=== PATIENT | female | born 1935 | race Caucasian/White ===

== ENCOUNTER 2017-09-30 03:17 | Inpatient (IN) | payer MEDICARE, MEDICAID ==
[~2017-09-30] VITALS: Ht 160 cm; Wt 77.3 kg
[2017-09-30] VITALS (22 sets, daily range): BP systolic 86–125; BP diastolic 39–77; BMI 28.0
--- NOTE | ~2017-09-30 | CN ---
PATIENT NAME:CONRAD ASENCIO MEDICAL RECORD: [id number] : 35 LOCATION:TOMD.2313 ADMIT DATE: 09/30/17 ACCOUNT: [id number] CONSULTING PHYSICIAN: LASHAE AVILA MD REFERRING PHYSICIAN: YENNY MELLO MD DATE OF CONSULTATION: 09/30/2017 CONSULT REQUESTING PHYSICIAN: Yenny Mello MD REASON FOR CONSULTATION: Critical care management. HISTORY OF PRESENT ILLNESS: Ms. Asencio is an 82-year-old -Ivorian female who has abdominal pain, nausea, and vomiting. The patient was also dizzy and lightheaded for the last 3 days. The patient came into the ER. The patient was hypotensive and she was in acute renal failure. REVIEW OF THE SYSTEMS: Mainly in the history of present illness. PAST MEDICAL HISTORY: 1. Hypothyroidism. 2. Hyperlipidemia. 3. History of small bowel obstruction in 1999. 4. Gastroesophageal reflux disease. 5. Constipation. ALLERGY: No known drug allergy. PERSONAL AND SOCIAL HISTORY: The patient is nonsmoker, nondrinker. FAMILY HISTORY: Noncontributory. PHYSICAL EXAMINATION: GENERAL: Now, the patient is lying comfortably in bed. She is not in any acute distress. VITAL SIGNS: The blood pressure is 98-101/52, pulse is 96, respiration is 20, temperature is 98.1, SpO2 is 98% on 2 liters nasal cannula. HEENT: Conjunctivae are pink. Sclerae are not icteric. NECK: Neck is supple. No JVD. CHEST: Chest excursion is minimal on both sides. There is no wheeze and no rales. HEART: Rate and rhythm regular. Normal sound. No murmur. ABDOMEN: Abdomen is distended. There is absent breath sounds. There is tenderness on deep palpation. RECTAL: Deferred. EXTREMITIES: No cyanosis. No clubbing. No pedal edema. SKIN: The skin is warm. Normal turgor. CENTRAL NERVOUS SYSTEM: The patient is awake and alert. There is no obvious cranial nerve abnormality. The gait was not tested. LABORATORY DATA: CBC; WBC 7.2, hemoglobin 13, hematocrit 38.3, and platelet count is 234. Chemistry; sodium 141, potassium 3.3, BUN is 55, creatinine 3.7. IMPRESSION: 1. Acute small bowel obstruction. 2. Hypovolemic shock. CONSULT REPORT [id number] CONRAD ASENCIO 3. Dehydration. 4. Acute kidney injury secondary to dehydration. 5. Hypokalemia. 6. Hypertension. 7. Gastroesophageal reflux disease. RECOMMENDATIONS: 1. Continue IV fluid. 2. NG tube suction. 3. DVT prophylaxis. 4. Pressor if required. Followup labs and chest radiograph. Abdominal workup per Dr. Mello. Dr. Mello, thank you for involving me in the care of Ms. Asencio. TRANSINT:[id number] Voice Confirmation ID: [id number] DOCUMENT ID: [id number] LASHAE AVILA MD at 1218 CC: [id number] DICTATION DATE: 09/30/17 1603 SCOUT EXECUTIVE: 09/30/17 1645 ADM IN [place] [id number] [place] [address]
--- NOTE | ~2017-09-30 | HEMODYNAMI ---
PATIENT:CONRAD ASENCIO MEDICAL RECORD: [id number] : 35 LOCATION:[place] [address] ADMISSION DATE: 09/30/17 Generatedon:10/05/201714:47 Patient name: CONRAD ASENCIO Patient #: [id number] SSN: DO B: 1935 Date of study: 10/05/2017 Page: Of Hemodynamic Procedure Report Patient Data Patient Demographics Procedure consent was obtained First Name: CONRAD Gender: Female Last Name: ELIF : 1935 Patient #: [id number] Age: 82 year(s) Race: Unknown Additional ID: [id number] Contact details Address: [address] [place] [address] State: [place] City: [place] Zip code: [address] Past Medical History Allergies: No known allergies Admission Admission Data Admission Date: 09/30/2017 Admission Time: 6:12 Room #: [facility] Height (in.): 63 BSA: 1.75 (m2) Height (cm.): 160.02 BMI: 27.99 (kg/m2) Weight (lbs.): 158 Weight (kg.): 71.67 Procedure Procedure Types Cath Procedure Peripheral Cath Diagnostic Procedure Cath Peripheral Miscellaneous Central Line Placement Procedure Description Procedure Date Procedure Date: 10/05/2017 Procedure Start Time: 14:43 Procedure Staff Name Function Antoni Welsh MD Performing Physician Abi Myers RT Electrical Inspector Hailey Henry RN Nurse Jonah Matthew RT Scrub Procedure Medications Medication Administration Route Dosage Lidocaine 1% added to field 20 Heparin Flush Bag added to field 1 bags (1000units/500ml NS) Hemodynamics Rest BSA: 1.75 (m2) O2 Consumption: Estimated: 238 (ml/min) O2 Consumption indexed: Estimated:136 (ml/min/m) Pre Cath Intra NCS Post Cath Vital Signs Time etCO2 NIBP (mmHg) Rhythm Pain Sedation (mmHg) Status Level 14:20:51 0 136/69(116) NSR 0 (11) , 10(A) No pain 14:25:09 0 131/69(101) NSR 0 (11) , 10(A) No pain 14:29:29 0 139/66(82) NSR 0 (11) , 10(A) No pain 14:33:47 0 139/65(108) NSR 0 (11) , 10(A) No pain 14:38:05 0 132/67(91) NSR 0 (11) , 10(A) No pain 14:42:23 0 138/71(93) NSR 0 (11) , 10(A) No pain 14:47:22 0 Measuring NSR 0 (11) , 10(A) No pain Medications Time Medication Route Dose Verified Delivered Reason Notes Effec tiveness by by 14:33:37 Lidocaine 1% added 20ml Antoni Corrales used for to vial Blaise Welsh MD procedure field 14:33:51 Heparin Flush added 1 Antoni Corrales used for Bag to bags Blaise Welsh MD procedure (1000units/500ml field NS) Procedure Log Time Note 14:18:34 Patient Weight : 158 lbs 14:18:39 Patient Height : 63 inches 14:19:05 Time tracking: Regular hours (M-F 7:00 - 5:00) 14:19:22 Plan of Care:Hemodynamics will remain stable., Cardiac rhythm will remain stable., Comfort level will be maintained., Respiratory function will remain adequate., Patient/ family verbilizes understanding of procedure., Procedure tolerated without complication., Recovers from procedure without complications.. 14:19:23 Correct patient and procedure confirmed by team. 14:19:27 Signed procedure consent form obtained from patient. 14:19:31 Vital chart was started 14:19:48 Full Disclosure recording started 14:19:49 - 14:19:54 H&P Date Dictated: 10/05/2017 Within 30 days and on chart.. 14:20:05 Use device set IR Diagnostic 14:20:07 Sterile Angiographic Pack opened to sterile field. 14:20:08 Bag Decanter () opened to sterile field. 14:20:17 SHIELD Sorbaview ([id number]) opened to sterile field. 14:20:25 SUTURE ETHILON 2-0 BLK MONO FS opened to sterile field. 14:20:32 - 14:20:43 Patient allergic to No known allergies 14:20:57 Left neck area was prepped with chlora-prep and draped in sterile fashion 14:21:01 - 14:29:47 Physician arrived 14:30:35 Final Timeout: patient, procedure, and site verified with staff and physician. All members of the team are in agreement. 14:30:53 Procedure started. 14:33:16 GLIDE WIRE Angled Super Stiff 180cm ([id number]) opened to sterile field. 14:33:37 Lidocaine 1% 20ml vial added to field was administered by Antoni Welsh MD; used for procedure; 14:33:51 Heparin Flush Bag (1000units/500ml NS) 1 bags added to field was administered by Antoni Welsh MD; used for procedure; 14:40:32 a 7fr 3lumen 16cm central venous catheter was placedin the left int. jugular 14:45:03 Procedure ended.(Physican Out) 14:45:17 Procedure and supply charges have been captured, reviewed, submitted an d are correct. 14:47:09 Report given to ICU. 14:47:54 Vital chart was stopped Device Usage Item Name Manufacture Quantity Catalog Hospital Part Current Minimal Lot# / Number Charge Number Stock Stock Serial# Code Sterile Cardinal [address] [id number] 5 Angiographic Health Pack Bag Decanter Microtek [id number] 5 () [employer] SHIELD Centurion 1 [id number] [id number] 5 Sorbaview ([id number]) SUTURE Ethicon 1 [id number] 183896 5 ETHILON 2-0 BLK MONO FS GLIDE WIRE Terumo 1 [id number] [id number] 5 Angled Super Stiff 180cm ([id number]) Signature Audit [place] Stage Time Signature Unsigned Intra-Procedure 10/05/2017 Abi Myers 2:47:52 PM RT(R) [facility] [address] [place] [address]
--- NOTE | ~2017-09-30 | OP ---
PATIENT NAME: CONRAD ASENCIO MEDICAL RECORD: [id number] :35 LOCATION:[facility] D.2313 ADMISSION DATE:09/30/17 SURGEON: FIDELIA MILLER MD DATE OF OPERATION: 10/03/2017 SURGEON: Fidelia Miller MD PREOPERATIVE DIAGNOSES: Small-bowel obstruction, acute renal failure. POSTOPERATIVE DIAGNOSES: Small-bowel obstruction, acute renal failure. PROCEDURE PERFORMED: 1. Exploratory laparotomy and small bowel resection. 2. Diagnostic laparoscopy with laparoscopic lysis of adhesions. 3. Left subclavian CVL placement. ANESTHESIA: General. COMPLICATIONS: None. SPECIMENS: Small bowel resection. ESTIMATED BLOOD LOSS: 200 cc. Case was grossly contaminated. OPERATIVE COURSE: After consent was obtained, the patient was taken to the operating room and placed in supine position on the operating table. Next, general anesthesia was given via endotracheal intubation after a timeout was taken to confirm the correct patient and procedure. The left chest was prepped and draped in typical sterile fashion. An Ioban dressing was placed when the patient was draped. Local anesthetic was injected. The left subclavian vein was cannulated on the first pass. A guidewire was placed. The needle was removed. A stab incision was made with an 11-blade scalpel. The dilator was passed over the wire in a standard Seldinger fashion. The catheter was then passed over the wire in a standard Seldinger fashion. Biopatch was placed. It was secured to the skin with 2-0 nylon suture and a sterile Tegaderm dressing. All 3 ports were aspirated and flushed. Next, the abdomen was prepped and draped in typical sterile fashion. A local anesthetic was given in the left upper quadrant at Mcdonenll's point. A stab incision was made at 11-blade scalpel using a 5-mm bladeless optical trocar, the abdomen was entered under direct laparoscopic vision. Adequate pneumoperitoneum was achieved. There were significant adhesions of the omentum and small bowel to the anterior midline previous laparotomy incision, 2 additional 5-mm trocars were placed in the left lateral and left lower quadrant positions in direct laparoscopic vision. Laparoscopic lysis of adhesions was performed with the Harmonic scalpel and sharp scissor dissection, freeing up all omentum and small bowel from the anterior midline. There were significant adhesions in the right lower quadrant. With the distal small-bowel which was also freed up of laparoscopic lysis of adhesions, a small bowel was run from the terminal ileum proximal. There was an area of dense adhesions in the mid small-bowel between the mid small bowel and transverse colon and greater omentum that were unable to be lysed laparoscopically. At this time, a small midline incision was made with a 15-blade scalpel through the previous midline incision. Dissection continued at the level of the fascia using electrocautery. The fascia was incised with OPERATIVE REPORT [id number] CONRAD ASECNIO electrocautery and there was immediate gush of air. Her main portion of the fascia was opened under direct vision. An Rufino wound retractor was placed. The small bowel was then extracorporealized at the area. There was an obstruction noted at a previous small bowel anastomosis. The small bowel anastomosis was extracorporealized. At this time, the proximal small bowel was markedly dilated. It was patchy and dusky, sterile towels were placed. Enterotomies were made using electrocautery. A common enterotomy was performed using the linear BOOKER stapler with a 75-mm green load. The common enterotomy was then closed with a second firing of the 75-mm green load stapler. The mesentery was taken with the Harmonic scalpel. The small bowel section was sent for permanent pathology. Next, the staple lines were imbricated using 3-0 Vicryl suture. Prior to closure of the anastomosis, a small bowel decompression was performed with the suction with several liters of fluid were suctioned from the proximal small bowel loops, then the suction was removed. The common enterotomy was closed with a second fire of the BOOKER stapler. Staple line was imbricated using 3-0 Vicryl suture. Mesentery was closed using 3-0 Vicryl suture. All small bowel was then extracorporealized. The small bowel was run from the terminal ileum. The cecum was identified. The small bowel was run from the terminal ileum, proximal. There was free passage of fluid through the anastomosis with no evidence of leak given it was run proximal to the small bowel anastomosis all the way to the ligament of Treitz, the abdomen was then irrigated with 5 liters of warm normal saline. A ADIEL drain was placed into the pelvis through the prior left lateral trocar site. The fascia was then closed with a 0 looped PDS suture. The skin was reapproximated with sg. At the end of the case, all needle and instrument counts were correct. No complications occurred. The patient was extubated and transferred to the PACU in stable condition. TRANSINT:[id number] Voice Confirmation ID: [id number] DOCUMENT ID: [id number] FIDELIA MILLER MD at 1702 CC: [id number] DICTATION DATE: 10/03/17 1522 SENIOR ADMINISTRATIVE SUPPORT: 10/03/17 1601 ADM IN [place] [address] [place] [address]
[2017-09-30 04:45] LABS: BASOPHILS 0.3 % (0-2); EOSINOPHILS 0.1 % (0-7); HEMATOCRIT 38.3 % (36.0-48.0); IMMATURE GRANULOCYTES 1.5 % (0-5); LYMPHOCYTES 11.7 % (15-50); MCH 28.6 pg (26.0-34.0); MCHC 33.9 g/dL (31.0-37.0); MCV 84.4 fL (80.0-100.0); MEAN PLATELET VOLUME 10.2 fL (7.4-10.4); MONOCYTES 16.1 % (2-11); NEUTROPHILS 70.3 % (40-80); PLATELET COUNT 234 10x3/uL (130-400); RBC 4.54 10x6/uL (4.00-5.40); RDW 14.4 % (11.5-14.5); WBC 7.2 10x3/uL (4.8-10.8)
[2017-09-30 05:08] LABS: ALBUMIN 2.8 g/dL (3.4-5.0); BILIRUBIN - TOTAL 0.78 mg/dL (0.2-1.3); CALCIUM 9.3 mg/dL (8.5-10.1); CARBON DIOXIDE 24.3 mmol/L (21.0-32.0); CREATININE - SERUM 3.7 mg/dL (0.6-1.3); POTASSIUM - SERUM 3.3 mmol/L (3.5-5.1); PROTEIN - SERUM 6.9 g/dL (6.4-8.2)
[2017-09-30 09:51] LABS: APTT 29.3 SECONDS (22.8-39.4); INR 1.47 (0.85-1.17); PROTIME 17.3 SECONDS (11.6-15.0)
[2017-09-30 20:16] LABS: APPEARANCE HAZY (CLEAR); BILIRUBIN NEGATIVE (NEGATIVE); COLOR YELLOW (YELLOW); GLUCOSE NEGATIVE (NEGATIVE); KETONE NEGATIVE (NEGATIVE); NITRITE NEGATIVE (NEGATIVE); PROTEIN TRACE mg/dL (NEGATIVE); UROBILINOGEN NORMAL (NORMAL)
[2017-09-30 20:37] LABS: POTASSIUM - URINE 69.2 MMOL/L (12.0-62.0); PRO/CRE RATIO URINE 1.1 mg/g; PROTEIN - URINE 169.3 mg/dL (0.0-11.9)
[2017-10-01] VITALS (20 sets, daily range): BP systolic 94–129; BP diastolic 39–89; Ht 160 cm; Wt 77.3 kg
[2017-10-01 04:06] LABS: BASOPHILS 0.9 % (0-2); EOSINOPHILS 0.5 % (0-7); HEMATOCRIT 34.2 % (36.0-48.0); HEMOGLOBIN 11.8 g/dL (12-16); IMMATURE GRANULOCYTES 2.5 % (0-5); LYMPHOCYTES 13.6 % (15-50); MCH 28.9 pg (26.0-34.0); MCHC 34.5 g/dL (31.0-37.0); MCV 83.6 fL (80.0-100.0); MEAN PLATELET VOLUME 10.6 fL (7.4-10.4); MONOCYTES 7.6 % (2-11); NEUTROPHILS 74.9 % (40-80); PLATELET COUNT 240 10x3/uL (130-400); RBC 4.09 10x6/uL (4.00-5.40); RDW 14.6 % (11.5-14.5); WBC 6.5 10x3/uL (4.8-10.8)
[2017-10-01 04:27] LABS: ANION GAP 19.4 mmol/L (8-16); BILIRUBIN - TOTAL 0.6 mg/dL (0.2-1.3); CALCIUM 7.9 mg/dL (8.5-10.1); CARBON DIOXIDE 19.1 mmol/L (21.0-32.0); POTASSIUM - SERUM 3.5 mmol/L (3.5-5.1); PROTEIN - SERUM 6.2 g/dL (6.4-8.2)
[2017-10-02] VITALS (22 sets, daily range): BP systolic 109–166; BP diastolic 60–91
[2017-10-02 03:56] LABS: BASOPHILS 0.5 % (0-2); EOSINOPHILS 0.3 % (0-7); HEMATOCRIT 34.6 % (36.0-48.0); HEMOGLOBIN 11.7 g/dL (12-16); IMMATURE GRANULOCYTES 7.2 % (0-5); LYMPHOCYTES 10.9 % (15-50); MCH 28.3 pg (26.0-34.0); MCHC 33.8 g/dL (31.0-37.0); MCV 83.8 fL (80.0-100.0); MONOCYTES 6.1 % (2-11); PLATELET COUNT 208 10x3/uL (130-400); RBC 4.13 10x6/uL (4.00-5.40); RDW 14.9 % (11.5-14.5)
[2017-10-02 03:57] LABS: WBC 12.9 10x3/uL (4.8-10.8)
[2017-10-02 04:36] LABS: ANION GAP 22.1 mmol/L (8-16); BILIRUBIN - TOTAL 0.51 mg/dL (0.2-1.3); CALCIUM 8.8 mg/dL (8.5-10.1); CARBON DIOXIDE 18.4 mmol/L (21.0-32.0); PROTEIN - SERUM 6.6 g/dL (6.4-8.2); THYROID STIMULATING HORMONE 2.22 uIU/mL (0.36-3.74)
[2017-10-02 04:49] LABS: CREATININE - SERUM 2.7 mg/dL (0.6-1.3); POTASSIUM - SERUM 3.5 mmol/L (3.5-5.1)
[2017-10-03] VITALS (24 sets, daily range): BP systolic 80–173; BP diastolic 45–87
[2017-10-03 03:38] LABS: BASOPHILS 0.6 % (0-2); EOSINOPHILS 1.1 % (0-7); HEMATOCRIT 35.6 % (36.0-48.0); HEMOGLOBIN 12.6 g/dL (12-16); IMMATURE GRANULOCYTES 11.8 % (0-5); LYMPHOCYTES 13.1 % (15-50); MCH 28.8 pg (26.0-34.0); MCHC 35.4 g/dL (31.0-37.0); MCV 81.5 fL (80.0-100.0); MEAN PLATELET VOLUME 9.9 fL (7.4-10.4); NEUTROPHILS 66.4 % (40-80); PLATELET COUNT 293 10x3/uL (130-400); RBC 4.37 10x6/uL (4.00-5.40); RDW 14.6 % (11.5-14.5); WBC 14.6 10x3/uL (4.8-10.8)
[2017-10-03 03:47] LABS: ANION GAP 15.5 mmol/L (8-16); BILIRUBIN - TOTAL 0.47 mg/dL (0.2-1.3); CALCIUM 9.3 mg/dL (8.5-10.1); CARBON DIOXIDE 23.9 mmol/L (21.0-32.0); CREATININE - SERUM 1.7 mg/dL (0.6-1.3); POTASSIUM - SERUM 3.4 mmol/L (3.5-5.1)
[2017-10-04] VITALS (24 sets, daily range): BP systolic 81–106; BP diastolic 32–62
[2017-10-04 04:37] LABS: BASOPHILS 0.3 % (0-2); EOSINOPHILS 0.1 % (0-7); HEMATOCRIT 33.9 % (36.0-48.0); HEMOGLOBIN 11.7 g/dL (12-16); IMMATURE GRANULOCYTES 10.5 % (0-5); LYMPHOCYTES 8.8 % (15-50); MCH 28.3 pg (26.0-34.0); MCHC 34.5 g/dL (31.0-37.0); MCV 82.1 fL (80.0-100.0); MEAN PLATELET VOLUME 9.9 fL (7.4-10.4); MONOCYTES 4.7 % (2-11); NEUTROPHILS 75.6 % (40-80); RBC 4.13 10x6/uL (4.00-5.40); RDW 14.8 % (11.5-14.5); WBC 15.1 10x3/uL (4.8-10.8)
[2017-10-04 04:38] LABS: PLATELET COUNT 223 10x3/uL (130-400)
[2017-10-04 05:02] LABS: BILIRUBIN - TOTAL 1.07 mg/dL (0.2-1.3); CALCIUM 7.7 mg/dL (8.5-10.1); CARBON DIOXIDE 26.9 mmol/L (21.0-32.0); CREATININE - SERUM 1.8 mg/dL (0.6-1.3)
[2017-10-04 05:05] LABS: ALBUMIN 1.3 g/dL (3.4-5.0); ANION GAP 13.6 mmol/L (8-16); POTASSIUM - SERUM 4.5 mmol/L (3.5-5.1); PROTEIN - SERUM 4.7 g/dL (6.4-8.2)
[2017-10-05] VITALS (18 sets, daily range): BP systolic 79–144; BP diastolic 45–89
[2017-10-05 03:46] LABS: BASOPHILS 0.2 % (0-2); EOSINOPHILS 0.4 % (0-7); HEMATOCRIT 30.5 % (36.0-48.0); HEMOGLOBIN 10.6 g/dL (12-16); IMMATURE GRANULOCYTES 11.7 % (0-5); LYMPHOCYTES 8.2 % (15-50); MCH 28.6 pg (26.0-34.0); MCHC 34.8 g/dL (31.0-37.0); MCV 82.2 fL (80.0-100.0); MEAN PLATELET VOLUME 9.8 fL (7.4-10.4); MONOCYTES 1.6 % (2-11); NEUTROPHILS 77.9 % (40-80); PLATELET COUNT 258 10x3/uL (130-400); RBC 3.71 10x6/uL (4.00-5.40); WBC 17.1 10x3/uL (4.8-10.8)
[2017-10-05 04:10] LABS: ALBUMIN 1.3 g/dL (3.4-5.0); ANION GAP 13.6 mmol/L (8-16); BILIRUBIN - TOTAL 1.73 mg/dL (0.2-1.3); CARBON DIOXIDE 25.6 mmol/L (21.0-32.0); CREATININE - SERUM 1.9 mg/dL (0.6-1.3); POTASSIUM - SERUM 4.2 mmol/L (3.5-5.1); PROTEIN - SERUM 5.1 g/dL (6.4-8.2)
[2017-10-06 00:51] VITALS: BP 165/82
[2017-10-06 04:28] VITALS: BP 157/77
[2017-10-06 05:18] LABS: BASOPHILS 0.1 % (0-2); EOSINOPHILS 0.9 % (0-7); HEMATOCRIT 27.6 % (36.0-48.0); HEMOGLOBIN 9.5 g/dL (12-16); IMMATURE GRANULOCYTES 8.3 % (0-5); LYMPHOCYTES 6.5 % (15-50); MCH 28.1 pg (26.0-34.0); MCHC 34.4 g/dL (31.0-37.0); MCV 81.7 fL (80.0-100.0); MEAN PLATELET VOLUME 9.7 fL (7.4-10.4); MONOCYTES 3.2 % (2-11); PLATELET COUNT 250 10x3/uL (130-400); RBC 3.38 10x6/uL (4.00-5.40); RDW 14.7 % (11.5-14.5); WBC 14.8 10x3/uL (4.8-10.8)
[2017-10-06 05:58] LABS: ALBUMIN 1.1 g/dL (3.4-5.0); ANION GAP 12.6 mmol/L (8-16); BILIRUBIN - TOTAL 1.9 mg/dL (0.2-1.3); CARBON DIOXIDE 24.3 mmol/L (21.0-32.0); CREATININE - SERUM 1.7 mg/dL (0.6-1.3); POTASSIUM - SERUM 3.9 mmol/L (3.5-5.1); PROTEIN - SERUM 5.2 g/dL (6.4-8.2)
[2017-10-06 08:01] VITALS: BP 158/89
[2017-10-06 13:06] VITALS: BP 121/76
[2017-10-06 16:25] VITALS: BP 160/67
[2017-10-06 19:51] VITALS: BP 149/67
[2017-10-07 00:10] VITALS: BP 123/60
[2017-10-07 04:45] VITALS: BP 135/62
[2017-10-07 06:35] LABS: ALBUMIN 1.3 g/dL (3.4-5.0); ANION GAP 16.4 mmol/L (8-16); BILIRUBIN - TOTAL 2.28 mg/dL (0.2-1.3); CALCIUM 8.3 mg/dL (8.5-10.1); CARBON DIOXIDE 22.8 mmol/L (21.0-32.0); CREATININE - SERUM 1.5 mg/dL (0.6-1.3); POTASSIUM - SERUM 4.2 mmol/L (3.5-5.1); PROTEIN - SERUM 5.3 g/dL (6.4-8.2)
[2017-10-07 07:27] LABS: BASOPHILS 0.2 % (0-2); EOSINOPHILS 1.2 % (0-7); HEMATOCRIT 31.1 % (36.0-48.0); HEMOGLOBIN 10.3 g/dL (12-16); IMMATURE GRANULOCYTES 7.4 % (0-5); LYMPHOCYTES 6.6 % (15-50); MCH 27.4 pg (26.0-34.0); MCHC 33.1 g/dL (31.0-37.0); MCV 82.7 fL (80.0-100.0); MEAN PLATELET VOLUME 10.6 fL (7.4-10.4); MONOCYTES 3.3 % (2-11); NEUTROPHILS 81.3 % (40-80); PLATELET COUNT 262 10x3/uL (130-400); RBC 3.76 10x6/uL (4.00-5.40); RDW 15.2 % (11.5-14.5); WBC 15.6 10x3/uL (4.8-10.8)
[2017-10-07 08:10] VITALS: BP 153/59
[2017-10-07 12:47] VITALS: BP 143/80
[2017-10-07 16:48] VITALS: BP 131/77
[2017-10-07 19:21] LABS: APPEARANCE CLEAR (CLEAR); BILIRUBIN NEGATIVE (NEGATIVE); COLOR DK YELLOW (YELLOW); GLUCOSE NEGATIVE (NEGATIVE); KETONE NEGATIVE (NEGATIVE); NITRITE NEGATIVE (NEGATIVE); PROTEIN TRACE mg/dL (NEGATIVE); UROBILINOGEN NORMAL (NORMAL)
[2017-10-07 19:23] LABS: BACTERIA FEW /hpf (NONE SEEN); RED CELLS - URINE 0-5 /hpf (0-5); WHITE CELLS - URINE 0-5 /hpf (0-5)
[2017-10-07 19:24] LABS: AMORPHOUS SEDIMENT <1+ /lpf (NONE SEEN)
[2017-10-07 19:54] VITALS: BP 139/65
[2017-10-08 00:01] VITALS: BP 135/71
[2017-10-08 03:56] VITALS: BP 140/60
[2017-10-08 06:49] LABS: BASOPHILS 0.2 % (0-2); EOSINOPHILS 0.5 % (0-7); HEMATOCRIT 26.4 % (36.0-48.0); HEMOGLOBIN 9.3 g/dL (12-16); IMMATURE GRANULOCYTES 5.1 % (0-5); LYMPHOCYTES 6.2 % (15-50); MCH 28.4 pg (26.0-34.0); MCHC 35.2 g/dL (31.0-37.0); MEAN PLATELET VOLUME 10.4 fL (7.4-10.4); MONOCYTES 4.2 % (2-11); NEUTROPHILS 83.8 % (40-80); RBC 3.27 10x6/uL (4.00-5.40); RDW 14.6 % (11.5-14.5); WBC 15.4 10x3/uL (4.8-10.8)
[2017-10-08 06:52] LABS: MCV 80.7 fL (80.0-100.0); PLATELET COUNT 346 10x3/uL (130-400)
[2017-10-08 07:10] LABS: ALBUMIN 1.2 g/dL (3.4-5.0); BILIRUBIN - TOTAL 1.52 mg/dL (0.2-1.3); CALCIUM 8.6 mg/dL (8.5-10.1); CARBON DIOXIDE 21.6 mmol/L (21.0-32.0); CREATININE - SERUM 1.4 mg/dL (0.6-1.3); MAGNESIUM - SERUM 1.8 mg/dL (1.8-2.4); PHOSPHOROUS 2.7 mg/dL (2.5-4.9); POTASSIUM - SERUM 3.6 mmol/L (3.5-5.1); PROTEIN - SERUM 5.9 g/dL (6.4-8.2)
[2017-10-08 07:47] VITALS: BP 129/70
[2017-10-08 12:13] VITALS: BP 150/67
[2017-10-08 15:58] VITALS: BP 130/66
[2017-10-08 20:06] VITALS: BP 134/82
[2017-10-09] VITALS: BP 128/71
[2017-10-09 04:01] VITALS: BP 103/64
[2017-10-09 05:39] LABS: BASOPHILS 0.2 % (0-2); EOSINOPHILS 0.5 % (0-7); HEMATOCRIT 26.7 % (36.0-48.0); HEMOGLOBIN 9.2 g/dL (12-16); IMMATURE GRANULOCYTES 1.9 % (0-5); LYMPHOCYTES 7.8 % (15-50); MCHC 34.5 g/dL (31.0-37.0); MCV 81.2 fL (80.0-100.0); MEAN PLATELET VOLUME 9.7 fL (7.4-10.4); MONOCYTES 4.8 % (2-11); NEUTROPHILS 84.8 % (40-80); RBC 3.29 10x6/uL (4.00-5.40); RDW 14.8 % (11.5-14.5); WBC 15.5 10x3/uL (4.8-10.8)
[2017-10-09 05:41] LABS: PLATELET COUNT 454 10x3/uL (130-400)
[2017-10-09 05:57] LABS: ALBUMIN 1.4 g/dL (3.4-5.0); ANION GAP 13.4 mmol/L (8-16); BILIRUBIN - TOTAL 1.41 mg/dL (0.2-1.3); CALCIUM 8.4 mg/dL (8.5-10.1); CARBON DIOXIDE 23.1 mmol/L (21.0-32.0); CREATININE - SERUM 1.4 mg/dL (0.6-1.3); POTASSIUM - SERUM 3.5 mmol/L (3.5-5.1); PROTEIN - SERUM 6.5 g/dL (6.4-8.2)
[2017-10-09 09:20] VITALS: BP 141/58
[2017-10-09 14:38] VITALS: BP 144/76
[2017-10-09 17:07] VITALS: BP 132/69
[2017-10-09 20:42] VITALS: BP 133/71
[2017-10-10 00:28] VITALS: BP 148/74
[2017-10-10 04:10] VITALS: BP 124/84
[2017-10-10 04:57] LABS: BASOPHILS 0.2 % (0-2); EOSINOPHILS 0.8 % (0-7); HEMATOCRIT 24.9 % (36.0-48.0); HEMOGLOBIN 8.4 g/dL (12-16); IMMATURE GRANULOCYTES 1.8 % (0-5); LYMPHOCYTES 10.7 % (15-50); MCH 27.5 pg (26.0-34.0); MCHC 33.7 g/dL (31.0-37.0); MCV 81.6 fL (80.0-100.0); MEAN PLATELET VOLUME 9.5 fL (7.4-10.4); MONOCYTES 5.8 % (2-11); NEUTROPHILS 80.7 % (40-80); PLATELET COUNT 541 10x3/uL (130-400); RBC 3.05 10x6/uL (4.00-5.40); RDW 14.8 % (11.5-14.5); WBC 14.1 10x3/uL (4.8-10.8)
[2017-10-10 05:12] LABS: ALBUMIN 1.5 g/dL (3.4-5.0); BILIRUBIN - TOTAL 1.24 mg/dL (0.2-1.3); CALCIUM 8.6 mg/dL (8.5-10.1); CARBON DIOXIDE 23.2 mmol/L (21.0-32.0); CREATININE - SERUM 1.2 mg/dL (0.6-1.3); POTASSIUM - SERUM 3.2 mmol/L (3.5-5.1); PROTEIN - SERUM 6.4 g/dL (6.4-8.2)
[2017-10-10 08:31] VITALS: BP 127/55
[2017-10-10 12:45] VITALS: BP 137/63
[2017-10-10 17:56] VITALS: BP 114/72
[2017-10-10 22:18] VITALS: BP 146/64
[2017-10-11 04:10] VITALS: BP 135/59
[2017-10-11 06:55] LABS: BASOPHILS 0.2 % (0-2); EOSINOPHILS 0.4 % (0-7); HEMATOCRIT 24.5 % (36.0-48.0); HEMOGLOBIN 8.2 g/dL (12-16); IMMATURE GRANULOCYTES 1.2 % (0-5); LYMPHOCYTES 7.3 % (15-50); MCH 27.7 pg (26.0-34.0); MCHC 33.5 g/dL (31.0-37.0); MCV 82.8 fL (80.0-100.0); MEAN PLATELET VOLUME 9.4 fL (7.4-10.4); MONOCYTES 7.6 % (2-11); NEUTROPHILS 83.3 % (40-80); PLATELET COUNT 635 10x3/uL (130-400); RBC 2.96 10x6/uL (4.00-5.40); RDW 15.1 % (11.5-14.5); WBC 12.6 10x3/uL (4.8-10.8)
[2017-10-11 07:09] LABS: ANION GAP 13.9 mmol/L (8-16); CALCIUM 8.7 mg/dL (8.5-10.1); CARBON DIOXIDE 21.7 mmol/L (21.0-32.0); CREATININE - SERUM 1.2 mg/dL (0.6-1.3); POTASSIUM - SERUM 3.6 mmol/L (3.5-5.1)
[2017-10-11 09:20] VITALS: BP 131/65
[2017-10-11 12:03] VITALS: BP 145/71
[2017-10-11 15:39] VITALS: BP 137/81
[2017-10-11 21:48] VITALS: BP 138/84
[2017-10-12 00:56] VITALS: BP 124/78
[2017-10-12 06:38] LABS: BASOPHILS 0.2 % (0-2); EOSINOPHILS 0.3 % (0-7); HEMATOCRIT 24.7 % (36.0-48.0); HEMOGLOBIN 8.3 g/dL (12-16); IMMATURE GRANULOCYTES 1.5 % (0-5); LYMPHOCYTES 9.7 % (15-50); MCH 27.9 pg (26.0-34.0); MCHC 33.6 g/dL (31.0-37.0); MCV 82.9 fL (80.0-100.0); MEAN PLATELET VOLUME 9.2 fL (7.4-10.4); MONOCYTES 10.7 % (2-11); NEUTROPHILS 77.6 % (40-80); PLATELET COUNT 726 10x3/uL (130-400); RBC 2.98 10x6/uL (4.00-5.40); RDW 15.6 % (11.5-14.5)
[2017-10-12 07:04] LABS: ANION GAP 13.7 mmol/L (8-16); CALCIUM 8.2 mg/dL (8.5-10.1); CARBON DIOXIDE 22.8 mmol/L (21.0-32.0); CREATININE - SERUM 1.1 mg/dL (0.6-1.3); POTASSIUM - SERUM 3.5 mmol/L (3.5-5.1)
[2017-10-12 08:06] VITALS: BP 150/73
[2017-10-12 12:36] VITALS: BP 144/70
[2017-10-12] MEDS ORDERED: HYDROCODON-ACE1 EAC7 PO (13:58)
[2017-10-12] MEDS ORDERED: MILK OF MAGNESI30 ML PO (13:59)
[2017-10-12 20:00] VITALS: BP 132/65
[2017-10-13] VITALS: BP 122/59
[2017-10-13 04:00] VITALS: BP 135/66
[2017-10-13 05:54] LABS: BASOPHILS 0.3 % (0-2); EOSINOPHILS 0.8 % (0-7); HEMATOCRIT 24.5 % (36.0-48.0); HEMOGLOBIN 8.3 g/dL (12-16); IMMATURE GRANULOCYTES 2.9 % (0-5); LYMPHOCYTES 11.1 % (15-50); MCHC 33.9 g/dL (31.0-37.0); MCV 82.8 fL (80.0-100.0); MONOCYTES 11.2 % (2-11); NEUTROPHILS 73.7 % (40-80); PLATELET COUNT 651 10x3/uL (130-400); RBC 2.96 10x6/uL (4.00-5.40); RDW 15.6 % (11.5-14.5); WBC 9.8 10x3/uL (4.8-10.8)
[2017-10-13 06:20] LABS: CALCIUM 7.9 mg/dL (8.5-10.1); CARBON DIOXIDE 22.2 mmol/L (21.0-32.0); CREATININE - SERUM 1.1 mg/dL (0.6-1.3); POTASSIUM - SERUM 3.2 mmol/L (3.5-5.1)
[2017-10-13 06:44] LABS: CHOL - HDL RATIO 4.9 ratio (2.3-4.1)
[2017-10-13 07:58] VITALS: BP 122/61
[2017-10-13 15:43] VITALS: BP 132/69
[2017-10-13 21:19] VITALS: BP 138/74
[2017-10-13 23:47] VITALS: BP 124/74
[2017-10-14 04:05] VITALS: BP 148/74
[2017-10-14 06:31] LABS: ANION GAP 10.9 mmol/L (8-16); CALCIUM 8.1 mg/dL (8.5-10.1); CARBON DIOXIDE 21.7 mmol/L (21.0-32.0); POTASSIUM - SERUM 3.6 mmol/L (3.5-5.1)
[2017-10-14 07:15] LABS: BASOPHILS 0.3 % (0-2); EOSINOPHILS 1.1 % (0-7); HEMATOCRIT 24.2 % (36.0-48.0); HEMOGLOBIN 8.1 g/dL (12-16); IMMATURE GRANULOCYTES 3.6 % (0-5); LYMPHOCYTES 10.7 % (15-50); MCH 27.8 pg (26.0-34.0); MCHC 33.5 g/dL (31.0-37.0); MCV 83.2 fL (80.0-100.0); MONOCYTES 11.7 % (2-11); NEUTROPHILS 72.6 % (40-80); PLATELET COUNT 656 10x3/uL (130-400); RBC 2.91 10x6/uL (4.00-5.40); WBC 10.1 10x3/uL (4.8-10.8)
[2017-10-14 07:52] VITALS: BP 126/64
[2017-10-14 12:24] VITALS: BP 118/70
[2017-10-14] MEDS ORDERED: AUGMENTIN 875-11 TAB PO (13:09)
[2017-10-14] MEDS ORDERED: DIFLUCAN100 MG PO (13:09)
[2017-10-14 17:01] VITALS: BP 149/77
[2017-10-14 20:51] VITALS: BP 134/64
[2017-10-15 04:26] VITALS: BP 128/54
[2017-10-15 06:54] LABS: BASOPHILS 0.4 % (0-2); EOSINOPHILS 0.7 % (0-7); HEMOGLOBIN 8.3 g/dL (12-16); IMMATURE GRANULOCYTES 5.8 % (0-5); LYMPHOCYTES 12.2 % (15-50); MCH 27.8 pg (26.0-34.0); MCHC 33.2 g/dL (31.0-37.0); MCV 83.6 fL (80.0-100.0); MEAN PLATELET VOLUME 8.5 fL (7.4-10.4); MONOCYTES 8.6 % (2-11); NEUTROPHILS 72.3 % (40-80); PLATELET COUNT 697 10x3/uL (130-400); RBC 2.99 10x6/uL (4.00-5.40); WBC 11.4 10x3/uL (4.8-10.8)
[2017-10-15 07:17] LABS: ANION GAP 12.3 mmol/L (8-16); CALCIUM 8.3 mg/dL (8.5-10.1); CARBON DIOXIDE 23.9 mmol/L (21.0-32.0); CREATININE - SERUM 1.1 mg/dL (0.6-1.3); POTASSIUM - SERUM 3.2 mmol/L (3.5-5.1)
[2017-10-15 08:42] VITALS: BP 134/67
[2017-10-15 15:54] VITALS: BP 118/72
[2017-10-15 20:38] VITALS: BP 143/75
[2017-10-16 00:06] VITALS: BP 131/75
[2017-10-16 04:47] VITALS: BP 132/69
[2017-10-16 07:56] VITALS: BP 122/58
[2017-10-16 12:28] VITALS: BP 129/67
[2017-10-16] MEDS ORDERED: FLAGYL500 MG PO (12:59)
[2017-10-16] MEDS ORDERED: KEFLEX500 MG PO ×2 (12:59→13:00)
== END 2017-10-16 15:40 | disposition home health service (06) | DRG 329 ==
LOC: D.ER 03:17 → D.MS 06:12 → D.EDHOLD 06:12 → D.ICU 06:12 → D.MS 10-05 20:24
PROVIDERS: Anesthesiology; Family Medicine; Internal Medicine; Internal Medicine Nephrology; Student in an Organized Health Care Education/Training Program; Surgery
PROC: 0DB84ZZ Excision of Small Intestine, Percutaneous Endoscopic Approach (ICD-10-PCS; principal; 2017-10-03 12:00)
PROC: 05H633Z Insertion of Infusion Device into Left Subclavian Vein, Percutaneous Approach (ICD-10-PCS; 2017-10-03 12:00)
PROC: 05S Upper Veins, Reposition (ICD-10-PCS; 2017-10-05)
PROC: 0Y953ZZ Drainage of Right Inguinal Region, Percutaneous Approach (ICD-10-PCS; 2017-10-09)
DX: K56.50 Intestinal adhesions [bands], unspecified as to partial versus complete obstruction (principal); R57.1 Hypovolemic shock; N17.0 Acute kidney failure with tubular necrosis; K65.1 Peritoneal abscess; E87.2 Acidosis; E87.0 Hyperosmolality and hypernatremia; T81.4XXA Infection following a procedure, initial encounter; J98.11 Atelectasis; E87.6 Hypokalemia; I10 Essential (primary) hypertension; K21.9 Gastro-esophageal reflux disease without esophagitis; E03.9 Hypothyroidism, unspecified; D72.829 Elevated white blood cell count, unspecified; D64.9 Anemia, unspecified; R00.0 Tachycardia, unspecified

== ENCOUNTER → 2017-11-05 10:52 | Outpatient (CLI) | payer MEDICARE, MEDICAID ==
[2017-10-01 20:45] VITALS: BMI 27.9
[~2017-11-05 10:52] MED LIST: AUGMENTIN 875-11 TAB PO; DIFLUCAN100 MG PO; FLAGYL500 MG PO; HYDROCODON-ACE1 EAC7 PO; KEFLEX500 MG PO; MILK OF MAGNESI30 ML PO
[2017-11-05 11:34] LABS: BASOPHILS 0.2 % (0-2); EOSINOPHILS 1.3 % (0-7); HEMATOCRIT 32.9 % (36.0-48.0); HEMOGLOBIN 10.8 g/dL (12-16); IMMATURE GRANULOCYTES 0.8 % (0-5); LYMPHOCYTES 31.8 % (15-50); MCH 27.9 pg (26.0-34.0); MCHC 32.8 g/dL (31.0-37.0); MEAN PLATELET VOLUME 9.2 fL (7.4-10.4); MONOCYTES 12.2 % (2-11); NEUTROPHILS 53.7 % (40-80); RBC 3.87 10x6/uL (4.00-5.40); WBC 9.2 10x3/uL (4.8-10.8)
[2017-11-05 11:39] LABS: PLATELET COUNT 318 10x3/uL (130-400)
[2017-11-05 11:44] LABS: ANION GAP 10.7 mmol/L (8-16); CALCIUM 9.1 mg/dL (8.5-10.1); CREATININE - SERUM 0.9 mg/dL (0.6-1.3); POTASSIUM - SERUM 3.7 mmol/L (3.5-5.1)
== END | disposition home or self-care (01) ==
LOC: D.LAB 10:45 → D.CT 11:00
PROVIDERS: Surgery
DX: K56.609 Unspecified intestinal obstruction, unspecified as to partial versus complete obstruction (principal)

== ENCOUNTER 2019-06-20 15:34 | Inpatient (IN) | payer MEDICARE ==
[~2019-06-20] VITALS: Ht 160 cm; Wt 63.5 kg
[2019-06-20] MEDS ORDERED: HYDROCODON-ACE1 EAC7 PO (15:39)
[2019-06-20 17:05] LABS: APTT 29.5 SECONDS (22.8-39.4); INR 1.19 (0.85-1.17)
[2019-06-20 17:18] LABS: BASOPHILS 0.1 % (0-2); EOSINOPHILS 0.3 % (0-7); HEMATOCRIT 30.7 % (36.0-48.0); HEMOGLOBIN 10.1 g/dL (12-16); IMMATURE GRANULOCYTES 0.5 % (0-5); LYMPHOCYTES 7.2 % (15-50); MCH 27.6 pg (26.0-34.0); MCHC 32.9 g/dL (31.0-37.0); MCV 83.9 fL (80.0-100.0); MEAN PLATELET VOLUME 9.3 fL (7.4-10.4); MONOCYTES 7.1 % (2-11); NEUTROPHILS 84.8 % (40-80); PLATELET COUNT 486 10x3/uL (130-400); RBC 3.66 10x6/uL (4.00-5.40); RDW 13.7 % (11.5-14.5); WBC 19.9 10x3/uL (4.8-10.8)
[2019-06-20 17:37] LABS: ALBUMIN 2.7 g/dL (3.4-5.0); ALKALINE PHOSPHATASE 35 U/L (30-120); ALT (SGPT) 24 U/L (10-68); BILIRUBIN - TOTAL 0.31 mg/dL (0.2-1.3); CARBON DIOXIDE 26.6 mmol/L (21.0-32.0); CHLORIDE - SERUM 104 mmol/L (98-107); CKMB 1.7 U/L (0.0-3.6); CREATINE KINASE 148 UL (21-215); CREATININE - SERUM 2.4 mg/dL (0.6-1.3); POTASSIUM - SERUM 3.9 mmol/L (3.5-5.1); PROTEIN - SERUM 7.5 g/dL (6.4-8.2); SODIUM 139 mmol/L (136-145); UREA NITROGEN 37 mg/dL (7-18); eGFR NON AFRICAN AMERICAN 20 mL/min (90-120)
[2019-06-20 17:38] LABS: CALC OSMOLALITY 290 mosm/kg (275-300); GLUCOSE 174 mg/dL (74-106); TROPONIN-I < 0.017 ng/mL (0.000-0.060)
[2019-06-20 17:40] LABS: CALCIUM 14.6 mg/dL (8.5-10.1)
[2019-06-20 18:41] VITALS: BP 123/48
[2019-06-20 20:00] VITALS: BP 123/52
[2019-06-20 23:07] VITALS: BP 123/52; BMI 24.8
[2019-06-21] VITALS (12 sets, daily range): BP systolic 110–153; BP diastolic 41–98; BMI 24.8
[2019-06-21 05:58] LABS: BILIRUBIN NEGATIVE (NEGATIVE); GLUCOSE NEGATIVE (NEGATIVE); KETONE NEGATIVE (NEGATIVE); NITRITE NEGATIVE (NEGATIVE); UROBILINOGEN NORMAL (NORMAL)
[2019-06-21 05:59] LABS: BACTERIA MODERATE /hpf (NEGATIVE)
[2019-06-21 07:04] LABS: BASOPHILS 0.1 % (0-2); EOSINOPHILS 2.4 % (0-7); HEMATOCRIT 29.9 % (36.0-48.0); HEMOGLOBIN 9.3 g/dL (12-16); IMMATURE GRANULOCYTES 0.6 % (0-5); LYMPHOCYTES 8.3 % (15-50); MCH 26.6 pg (26.0-34.0); MCHC 31.1 g/dL (31.0-37.0); MCV 85.7 fL (80.0-100.0); MONOCYTES 9.7 % (2-11); NEUTROPHILS 78.9 % (40-80); PLATELET COUNT 437 10x3/uL (130-400); RBC 3.49 10x6/uL (4.00-5.40); RDW 14.1 % (11.5-14.5); WBC 16.4 10x3/uL (4.8-10.8)
[2019-06-21 07:45] LABS: ALBUMIN 2.3 g/dL (3.4-5.0); BILIRUBIN - TOTAL 0.32 mg/dL (0.2-1.3); CARBON DIOXIDE 26.1 mmol/L (21.0-32.0); CREATININE - SERUM 2.3 mg/dL (0.6-1.3); PROTEIN - SERUM 6.6 g/dL (6.4-8.2); VANCOMYCIN - RANDOM 11.7 ug/mL (10.0-20.0)
[2019-06-21 07:46] LABS: ANION GAP 12.5 mmol/L (8-16); POTASSIUM - SERUM 4.6 mmol/L (3.5-5.1)
[2019-06-21 07:48] LABS: CALCIUM 14.7 mg/dL (8.5-10.1)
[2019-06-22 04:00] VITALS: BP 152/65
[2019-06-22 05:22] LABS: BASOPHILS 0.1 % (0-2); EOSINOPHILS 2.4 % (0-7); HEMATOCRIT 30.5 % (36.0-48.0); HEMOGLOBIN 9.7 g/dL (12-16); IMMATURE GRANULOCYTES 0.4 % (0-5); LYMPHOCYTES 7.1 % (15-50); MCHC 31.8 g/dL (31.0-37.0); MEAN PLATELET VOLUME 9.1 fL (7.4-10.4); MONOCYTES 7.3 % (2-11); NEUTROPHILS 82.7 % (40-80); PLATELET COUNT 454 10x3/uL (130-400); RBC 3.59 10x6/uL (4.00-5.40); RDW 13.8 % (11.5-14.5); WBC 17.8 10x3/uL (4.8-10.8)
[2019-06-22 05:48] LABS: % SATURATION 5 % (15-55); IRON 11 ug/dl (35-150); TOTAL IRON BIND CAPACITY 195 ug/dl (260-445); UNSAT IRON BIND CAPACITY 184 ug/dl (150-375)
[2019-06-22 07:04] LABS: ALBUMIN 2.2 g/dL (3.4-5.0); BILIRUBIN - TOTAL 0.45 mg/dL (0.2-1.3); CARBON DIOXIDE 22.1 mmol/L (21.0-32.0); CREATININE - SERUM 2.4 mg/dL (0.6-1.3); MAGNESIUM - SERUM 1.7 mg/dL (1.8-2.4); PHOSPHOROUS 4.1 mg/dL (2.5-4.9); PROTEIN - SERUM 7.2 g/dL (6.4-8.2); VANCOMYCIN - RANDOM 17.5 ug/mL (10.0-20.0)
[2019-06-22 07:08] LABS: ANION GAP 15.8 mmol/L (8-16); POTASSIUM - SERUM 3.9 mmol/L (3.5-5.1)
[2019-06-22 07:09] LABS: CALCIUM 14.8 mg/dL (8.5-10.1)
--- NOTE | 2019-06-22 08:01 | MORECARE ---
CASE MANAGEMENT DISCHARGE SUMMARY PATIENT: CONRAD ASENCIO UNIT: [id number] ADM DATE: 06/20/19 AGE: 84 : 35 SEX: F ROOM/BED: D.2215 AUTHOR: SHAY VALENTIN PHYSICIAN: REFERRING PHYSICIAN: GENI SANDS MD DATE OF SERVICE: 06/22/19 Discharge Plan Patient Name: CONRAD ASENCIO Facility: [facility]:[place] : 1935 Planned Disposition: Home Anticipated Discharge Date: Discharge Date: Expected LOS: Initial Reviewer: [email or web address] Initial Review Date: 06/20/2019 Generated: 06/22/19 9:01 am Comments DCP- Discharge Planning Updated by [email or web address]: Purvi Roldan on 06/22/19 6:[address] Attempted to see the patient, but she was very sleepy. She stated that she lives alone in [place] is independent at home. During our conversation she was falling asleep again. I will attempt to see her again at a later time. CM to follow and assist with DC planning Patient Name: CONRAD ASENCIO Page 45169 at 0801 All edits/amendments must be made on the electronic document DICTATION DATE: 06/22/19 08 SLUSHER OPERATOR: ALBERTA 06/22/19800 RPT#: [id number] DC DATE: STATUS: ADM IN [place] [address] [place] [id number] END OF REPORT
[2019-06-22 08:54] VITALS: BP 168/77
[2019-06-22 11:07] LABS: CHOL - HDL RATIO 3.1 ratio (2.3-4.1); LDL-HDL RATIO 1.7 ratio (1.5-3.5)
[2019-06-22 12:11] VITALS: Ht 160 cm; Wt 63.5 kg
[2019-06-22 12:32] VITALS: BP 138/60
[2019-06-22 15:03] LABS: BILIRUBIN NEGATIVE (NEGATIVE); GLUCOSE NEGATIVE (NEGATIVE); KETONE NEGATIVE (NEGATIVE); NITRITE NEGATIVE (NEGATIVE); UROBILINOGEN NORMAL (NORMAL)
[2019-06-22 15:06] LABS: RED CELLS - URINE OCC /hpf (0-5); WHITE CELLS - URINE 0-5 /hpf (NEGATIVE)
[2019-06-22 16:44] VITALS: BP 117/67
[2019-06-22 20:43] VITALS: BP 109/57
[2019-06-23] VITALS (13 sets, daily range): BP systolic 105–152; BP diastolic 51–79
[2019-06-23 05:52] LABS: BASOPHILS 0.1 % (0-2); EOSINOPHILS 2.1 % (0-7); HEMATOCRIT 29.2 % (36.0-48.0); HEMOGLOBIN 9.2 g/dL (12-16); IMMATURE GRANULOCYTES 0.6 % (0-5); LYMPHOCYTES 8.3 % (15-50); MCH 26.8 pg (26.0-34.0); MCHC 31.5 g/dL (31.0-37.0); MCV 85.1 fL (80.0-100.0); MEAN PLATELET VOLUME 9.1 fL (7.4-10.4); MONOCYTES 7.8 % (2-11); NEUTROPHILS 81.1 % (40-80); PLATELET COUNT 446 10x3/uL (130-400); RBC 3.43 10x6/uL (4.00-5.40); WBC 16.9 10x3/uL (4.8-10.8)
[2019-06-23 06:00] LABS: ANION GAP 12.9 mmol/L (8-16); CARBON DIOXIDE 24.1 mmol/L (21.0-32.0); CREATININE - SERUM 2.2 mg/dL (0.6-1.3); PROTEIN - SERUM 6.9 g/dL (6.4-8.2); VANCOMYCIN - RANDOM 20.3 ug/mL (10.0-20.0)
[2019-06-23 06:19] LABS: CALCIUM 12.3 mg/dL (8.5-10.1)
[2019-06-23 10:09] LABS: ANA REFLEX - DBL STRANDED DNA 2 IU/mL (0-9); ANA REFLEX - DIRECT Negative (Negative)
--- NOTE | 2019-06-23 10:24 | MORECARE ---
CASE MANAGEMENT DISCHARGE SUMMARY PATIENT: CONRAD ASENCIO UNIT: [id number] ADM DATE: 06/20/19 AGE: 84 : 35 SEX: F ROOM/BED: D.2215 AUTHOR: SHAY VALENTIN PHYSICIAN: REFERRING PHYSICIAN: GENI SANDS MD DATE OF SERVICE: 06/23/19 Discharge Plan Patient Name: CONRAD ASENCIO [facility] [facility] 1935 Planned Disposition: Home Anticipated Discharge Date: Discharge Date: Expected LOS: Initial Reviewer: [email or web address] Initial Review Date: 06/20/2019 Generated: 06/23/19 11:23 am Comments DCP- Discharge Planning Updated by [email or web address]: Tracey Franklin on 06/23/19 9:[address] Received call from patient's daughter Monica Asencio stating her mother will need to go to Rehab and she wants he to go to [facility] in [place]. ABHAY discussed over the phone and signed via telephone consent with Francie Fleming CM witnessing. CM received order for PT/OT consult as this is required for rehab. This patient is a managed medicare policy and will require authorization. Tracey Franklin RN, [facility] DCP- Discharge Planning Updated by [email or web address]: Purvi Jamar on 06/22/19 6:[address] Attempted to see the patient, but she was very sleepy. She stated that she lives alone in [place] is independent at home. During our conversation she was falling asleep again. I will attempt to see her again at a later time. CM to follow and assist with DC planning Last DP export: 06/22/19 7:01 a Patient Name: CONRAD ASENCIO Page 28136 at 1024 All edits/amendments must be made on the electronic document DICTATION DATE: 06/23/19 1023 SENIOR SOFTWARE DEVELOPMENT MANAGER: ALBERTA 06/23/19 1023 RPT#: [id number] DC DATE: STATUS: ADM IN [facility] [address] [place] [address] END OF REPORT
[2019-06-23 11:09] LABS: SPE - A/G RATIO 0.6 (0.7-1.7); SPE - ALBUMIN 2.6 g/dL (2.9-4.4); SPE - ALPHA-1 GLOBULIN 0.4 g/dL (0.0-0.4); SPE - BETA GLOBULIN 1.2 g/dL (0.7-1.3); SPE - GAMMA GLOBULIN 1.5 g/dL (0.4-1.8); SPE - M-SPIKE 0.2 g/dL (Not Observed); SPE - TOTAL PROTEIN 6.7 g/dL (6.0-8.5)
--- NOTE | 2019-06-23 13:46 | MORECARE ---
CASE MANAGEMENT DISCHARGE SUMMARY PATIENT: CONRAD ASENCIO UNIT: [id number] ADM DATE: 06/20/19 AGE: 84 : 35 SEX: F ROOM/BED: D.2215 AUTHOR: SHAY VALENTIN PHYSICIAN: REFERRING PHYSICIAN: GENI SANDS MD DATE OF SERVICE: 06/23/19 Discharge Plan Patient Name: CONRAD ASENCIO [facility] [facility] 1935 Planned Disposition: Home Anticipated Discharge Date: Discharge Date: Expected LOS: Initial Reviewer: [email or web address] Initial Review Date: 06/20/2019 Generated: 06/23/19 2:45 pm Comments DCP- Discharge Planning Updated by [email or web address]: Tracey Franklin on 06/23/19 9:[address] Received call from patient's daughter Monica Asencio stating her mother will need to go to Rehab and she wants he to go to [facility] in [place]. ABHAY discussed over the phone and signed via telephone consent with Francie Fleming CM witnessing. CM received order for PT/OT consult as this is required for rehab. This patient is a managed medicare policy and will require authorization. Tracey Franklin RN, [facility] DCP- Discharge Planning Updated by [email or web address]: Purvi Jamar on 06/22/19 6:[address] Attempted to see the patient, but she was very sleepy. She stated that she lives alone in [place] is independent at home. During our conversation she was falling asleep again. I will attempt to see her again at a later time. CM to follow and assist with DC planning External Providers External Provider: [facility] Next Contact Date: Service Request Date: Service Type: Resolution: Reviewer: Comments: Last DP export: 06/23/19 9:24 a Patient Name: CONRAD ASENCIO Page 69927 at 1346 All edits/amendments must be made on the electronic document DICTATION DATE: 06/23/19 1345 INTERNAL CONTROL CONSULTANT: ALBERTA 06/23/19 1345 RPT#: [id number] DC DATE: STATUS: ADM IN [place] [id number] [place] [address] END OF REPORT
[2019-06-23 14:13] LABS: PROTEIN - BODY FLUID 4.5 G/DL
[2019-06-23 14:40] LABS: MACROPHAGES BF 21 %; NEUT - BF 14 %
--- NOTE | 2019-06-23 15:25 | MORECARE ---
CASE MANAGEMENT DISCHARGE SUMMARY PATIENT: CONRAD ASENCIO UNIT: [id number] ADM DATE: 06/20/19 AGE: 84 : 35 SEX: F ROOM/BED: D.2215 AUTHOR: SHAY VALENTIN PHYSICIAN: REFERRING PHYSICIAN: GENI SANDS MD DATE OF SERVICE: 06/23/19 Discharge Plan Patient Name: CONRAD ASENCIO [facility] [facility] 1935 Planned Disposition: Home Anticipated Discharge Date: Discharge Date: Expected LOS: Initial Reviewer: [email or web address] Initial Review Date: 06/20/2019 Generated: 06/23/19 4:25 pm Comments DCP- Discharge Planning Updated by [email or web address]: Tracey Franklin on 06/23/19 9:[address] Received call from patient's daughter Monica Asencio stating her mother will need to go to Rehab and she wants he to go to [facility] in [place]. ABHAY discussed over the phone and signed via telephone consent with Francie Fleming CM witnessing. CM received order for PT/OT consult as this is required for rehab. This patient is a managed medicare policy and will require authorization. Tracey Franklin RN, [facility] DCP- Discharge Planning Updated by [email or web address]: Purvi Jamar on 06/22/19 6:[address] Attempted to see the patient, but she was very sleepy. She stated that she lives alone in [place] is independent at home. During our conversation she was falling asleep again. I will attempt to see her again at a later time. CM to follow and assist with DC planning Last DP export: 06/23/19 12:46 p Patient Name: CONRAD ASENCIO Page 40271 at 1525 All edits/amendments must be made on the electronic document DICTATION DATE: 06/23/191524 GUEST SERVICE HOST: ALBERTA 06/23/191524 RPT#: [id number] DC DATE: STATUS: ADM IN [facility] [address] [place] [address] END OF REPORT
[2019-06-24] VITALS: BP 145/69
[2019-06-24 04:00] VITALS: BP 107/48
[2019-06-24 05:56] LABS: BASOPHILS 0.1 % (0-2); EOSINOPHILS 1.3 % (0-7); HEMATOCRIT 31.3 % (36.0-48.0); HEMOGLOBIN 10.1 g/dL (12-16); IMMATURE GRANULOCYTES 0.5 % (0-5); LYMPHOCYTES 5.3 % (15-50); MCH 27.1 pg (26.0-34.0); MCHC 32.3 g/dL (31.0-37.0); MCV 83.9 fL (80.0-100.0); MONOCYTES 6.9 % (2-11); NEUTROPHILS 85.9 % (40-80); PLATELET COUNT 489 10x3/uL (130-400); RBC 3.73 10x6/uL (4.00-5.40); RDW 13.8 % (11.5-14.5); WBC 19.4 10x3/uL (4.8-10.8)
[2019-06-24 06:18] LABS: ANION GAP 14.5 mmol/L (8-16); CALCIUM 11.4 mg/dL (8.5-10.1); CREATININE - SERUM 2.2 mg/dL (0.6-1.3); POTASSIUM - SERUM 3.5 mmol/L (3.5-5.1); VANCOMYCIN - RANDOM 12.9 ug/mL (10.0-20.0)
[2019-06-24 09:39] VITALS: BP 140/72
[2019-06-24 10:09] LABS: FUNGUS STAIN Final report (())
[2019-06-24 12:17] VITALS: BP 110/60
[2019-06-24 13:09] LABS: ACID FAST SMEAR Negative (()); AFB SPECIMEN PROCESSING Not Indicated (())
[2019-06-24 16:37] VITALS: BP 117/59
[2019-06-24 20:00] VITALS: BP 108/48
[2019-06-25] VITALS: BP 107/51
[2019-06-25 04:00] VITALS: BP 113/61
[2019-06-25 06:35] LABS: HEMATOCRIT 30.9 % (36.0-48.0); MCH 27.1 pg (26.0-34.0); MCHC 32.4 g/dL (31.0-37.0); MCV 83.7 fL (80.0-100.0); MEAN PLATELET VOLUME 9.3 fL (7.4-10.4); PLATELET COUNT 459 10x3/uL (130-400); RBC 3.69 10x6/uL (4.00-5.40); RDW 13.9 % (11.5-14.5); WBC 26.4 10x3/uL (4.8-10.8)
[2019-06-25 06:55] LABS: ANION GAP 15.4 mmol/L (8-16); CALCIUM 10.9 mg/dL (8.5-10.1); CREATININE - SERUM 2.2 mg/dL (0.6-1.3); POTASSIUM - SERUM 3.4 mmol/L (3.5-5.1); VANCOMYCIN - RANDOM 16.4 ug/mL (10.0-20.0)
[2019-06-25 07:58] LABS: EOSINOPHILS 1 % (0-7); LYMPHOCYTES 9 % (15-50); MONOCYTES 3 % (2-11); NEUTROPHILS 77 % (40-80); PLATELET ESTIMATE NORMAL
[2019-06-25 08:51] VITALS: BP 114/65
[2019-06-25 12:01] VITALS: BP 107/55
[2019-06-25 17:17] VITALS: BP 114/59
[2019-06-25 20:06] VITALS: BP 117/52
[2019-06-26 00:48] VITALS: BP 116/51
[2019-06-26 04:50] VITALS: BP 102/50
[2019-06-26 06:27] LABS: BASOPHILS 0.1 % (0-2); EOSINOPHILS 0.7 % (0-7); HEMATOCRIT 30.2 % (36.0-48.0); HEMOGLOBIN 9.9 g/dL (12-16); IMMATURE GRANULOCYTES 0.7 % (0-5); LYMPHOCYTES 6.4 % (15-50); MCHC 32.8 g/dL (31.0-37.0); MCV 82.5 fL (80.0-100.0); MEAN PLATELET VOLUME 9.3 fL (7.4-10.4); MONOCYTES 6.5 % (2-11); NEUTROPHILS 85.6 % (40-80); PLATELET COUNT 459 10x3/uL (130-400); RBC 3.66 10x6/uL (4.00-5.40); RDW 13.8 % (11.5-14.5); WBC 27.2 10x3/uL (4.8-10.8)
[2019-06-26 06:35] LABS: ANION GAP 15.5 mmol/L (8-16); CALCIUM 10.4 mg/dL (8.5-10.1); CARBON DIOXIDE 27.1 mmol/L (21.0-32.0); CREATININE - SERUM 2.4 mg/dL (0.6-1.3); VANCOMYCIN - RANDOM 21.2 ug/mL (10.0-20.0)
[2019-06-26 06:37] LABS: POTASSIUM - SERUM 2.6 mmol/L (3.5-5.1)
[2019-06-26 09:22] VITALS: BP 97/45
[2019-06-26 13:57] VITALS: BP 106/54
[2019-06-26 15:30] LABS: ANION GAP 18.4 mmol/L (8-16); CARBON DIOXIDE 21.8 mmol/L (21.0-32.0)
[2019-06-26 15:44] LABS: CALCIUM 10.2 mg/dL (8.5-10.1); CREATININE - SERUM 2.4 mg/dL (0.6-1.3); MAGNESIUM - SERUM 1.3 mg/dL (1.8-2.4)
[2019-06-26 15:45] LABS: POTASSIUM - SERUM 3.2 mmol/L (3.5-5.1)
[2019-06-26 16:42] VITALS: BP 96/48
[2019-06-26 20:00] VITALS: BP 105/55
[2019-06-27 04:00] VITALS: BP 92/40
[2019-06-27 05:15] LABS: ANION GAP 14.8 mmol/L (8-16); CALCIUM 9.7 mg/dL (8.5-10.1); CARBON DIOXIDE 24.3 mmol/L (21.0-32.0); CREATININE - SERUM 2.3 mg/dL (0.6-1.3); POTASSIUM - SERUM 3.1 mmol/L (3.5-5.1); VANCOMYCIN - RANDOM 13.9 ug/mL (10.0-20.0)
[2019-06-27 05:19] LABS: HEMATOCRIT 27.2 % (36.0-48.0); MCH 26.7 pg (26.0-34.0); MCHC 33.1 g/dL (31.0-37.0); MCV 80.7 fL (80.0-100.0); MEAN PLATELET VOLUME 9.2 fL (7.4-10.4); PLATELET COUNT 399 10x3/uL (130-400); RBC 3.37 10x6/uL (4.00-5.40); RDW 13.6 % (11.5-14.5); WBC 25.2 10x3/uL (4.8-10.8)
[2019-06-27 08:55] VITALS: BP 115/55
[2019-06-27 09:43] LABS: BASOPHILS 1 % (0-2); HYPOCHROMASIA OCC; LYMPHOCYTES 7 % (15-50); MONOCYTES 10 % (2-11); NEUTROPHILS 76 % (40-80); PLATELET ESTIMATE INCREASED; ROULEAUX OCC
[2019-06-27 11:51] VITALS: BP 112/48
[2019-06-27 15:26] VITALS: BP 99/51
[2019-06-27 16:08] LABS: UPE RAND - ALBUMIN 19.4 % (()); UPE RAND - ALPHA 1 GLOBULIN 6.9 % (()); UPE RAND - ALPHA 2 GLOBULIN 18.7 % (()); UPE RAND - BETA GLOBULIN 30.9 % (()); UPE RAND - GAMMA GLOBULIN 24.1 % (())
[2019-06-27 20:29] VITALS: BP 107/49
[2019-06-28 00:25] VITALS: BP 104/52
[2019-06-28 04:49] LABS: HEMATOCRIT 27.2 % (36.0-48.0); HEMOGLOBIN 8.9 g/dL (12-16); MCH 26.7 pg (26.0-34.0); MCHC 32.7 g/dL (31.0-37.0); MCV 81.7 fL (80.0-100.0); NEUTROPHILS 89.9 % (40-80); PLATELET COUNT 415 10x3/uL (130-400); RBC 3.33 10x6/uL (4.00-5.40); RDW 14.1 % (11.5-14.5); WBC 25.9 10x3/uL (4.8-10.8)
[2019-06-28 04:57] LABS: ANION GAP 12.6 mmol/L (8-16); CALCIUM 9.7 mg/dL (8.5-10.1); CARBON DIOXIDE 22.9 mmol/L (21.0-32.0); POTASSIUM - SERUM 3.5 mmol/L (3.5-5.1); VANCOMYCIN - RANDOM 17.2 ug/mL (10.0-20.0)
[2019-06-28 05:01] LABS: MAGNESIUM - SERUM 2.2 mg/dL (1.8-2.4)
[2019-06-28 05:48] VITALS: BP 98/50
[2019-06-28 08:46] VITALS: BP 114/52
[2019-06-28 12:29] VITALS: BP 117/61
--- NOTE | 2019-06-28 16:52 | MORECARE ---
CASE MANAGEMENT DISCHARGE SUMMARY PATIENT: CONRAD ASENCIO UNIT: [id number] ADM DATE: 06/20/19 AGE: 84 : 35 SEX: F ROOM/BED: D.0158 AUTHOR: HOMERODOC PHYSICIAN: REFERRING PHYSICIAN: GENI SANDS MD DATE OF SERVICE: 06/28/19 Discharge Plan Patient Name: CONRAD ASENCIO Facility: [facility]:[place] : 1935 Planned Disposition: Home Anticipated Discharge Date: Discharge Date: Expected LOS: Initial Reviewer: [email or web address] Initial Review Date: 06/20/2019 Generated: 06/28/19 5:52 pm Comments DCP- Discharge Planning Updated by [email or web address]: Purvi Roldan on 06/28/19 3:[address] Sands called and stated that he spoke with the MD from [place] & he wants a Bx to determine the plan of care. He would order this with IR then he will speak with the Patient and her family. CM will continue to assist with DC planning as needed. If she plans to go to [facility] she will need updated therapy notes to be sent to [facility]. CM to follow and assist DCP- Discharge Planning Updated by [email or web address]: Tracey Franklin on 06/23/19 9:[address] Received call from patient's daughter Monica Asencio stating her mother will need to go to Rehab and she wants he to go to [facility] in [place]. ABHAY discussed over the phone and signed via telephone consent with Francie Fleming CM witnessing. CM received order for PT/OT consult as this is required for rehab. This patient is a managed medicare policy and will require authorization. Tracey Franklin RN, [facility] DCP- Discharge Planning Updated by [email or web address]: Purvi Roldan on 06/22/19 6:[address] Attempted to see the patient, but she was very sleepy. She stated that she lives alone in [place] is independent at home. During our conversation she was falling asleep again. I will attempt to see her again at a later time. CM to follow and assist with DC planning Last DP export: 06/23/19 2:25 p Patient Name: CONRAD ASENCIO Page 99523 at 1652 All edits/amendments must be made on the electronic document DICTATION DATE: 06/28/191651 WAREHOUSE WORKER: ALBERTA 06/28/191651 RPT#: [id number] DC DATE: STATUS: ADM IN [facility] [address] [place] [address] END OF REPORT
[2019-06-28 17:42] VITALS: BP 98/51
[2019-06-28 20:00] VITALS: BP 121/52
[2019-06-29] VITALS: BP 118/61; BP 118/71
[2019-06-29 04:00] VITALS: BP 120/55
[2019-06-29 05:39] LABS: MAGNESIUM - SERUM 2.1 mg/dL (1.8-2.4); VANCOMYCIN - RANDOM 10.2 ug/mL (10.0-20.0)
[2019-06-29 08:02] VITALS: BP 130/59
[2019-06-29 12:00] VITALS: BP 129/50
[2019-06-29 22:42] VITALS: BP 110/49
[2019-06-30 01:42] VITALS: BP 136/65
[2019-06-30 06:18] VITALS: BP 128/72
[2019-06-30 08:41] VITALS: BP 125/82
[2019-06-30 09:12] LABS: HEMATOCRIT 27.7 % (36.0-48.0); HEMOGLOBIN 9.1 g/dL (12-16); MCH 26.5 pg (26.0-34.0); MCHC 32.9 g/dL (31.0-37.0); MCV 80.8 fL (80.0-100.0); MEAN PLATELET VOLUME 9.3 fL (7.4-10.4); PLATELET COUNT 482 10x3/uL (130-400); RBC 3.43 10x6/uL (4.00-5.40); RDW 14.3 % (11.5-14.5); WBC 38.2 10x3/uL (4.8-10.8)
[2019-06-30 09:31] LABS: ANION GAP 16.2 mmol/L (8-16); CALCIUM 11.1 mg/dL (8.5-10.1); CREATININE - SERUM 1.8 mg/dL (0.6-1.3); POTASSIUM - SERUM 4.2 mmol/L (3.5-5.1)
[2019-06-30 10:51] LABS: CRENATED CELLS OCC; LYMPHOCYTES 5 % (15-50); MONOCYTES 6 % (2-11); NEUTROPHILS 84 % (40-80); PLATELET ESTIMATE INCREASED
[2019-06-30 12:25] VITALS: BP 108/57
--- NOTE | 2019-06-30 12:59 | OP ---
PATIENT NAME: CONRAD ASENCIO MEDICAL RECORD: [id number] :35 LOCATION:D.MS [id number] ADMISSION DATE:06/20/19 SURGEON: GENI SANDS MD DATE OF OPERATION: 06/21/2019 DATE OF SERVICE: 06/21/2019 PREOPERATIVE DIAGNOSIS: Vulvar mass. 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 SURGEON: Geni Sands MD PROCEDURE PERFORMED: 1. Exam under anesthesia. 2. Vulvar biopsies. SURGEON: Geni Sands MD FINDING FASTENER: Davis Cassidy. ANESTHESIOLOGIST: Dr. Siu. ANESTHETIC: TIVA. FINDINGS: Large ulcerative lesion greater than 6 cm x 6 cm and the right lower vulva extending into the bottom of the vagina. This large ulcerative lesion is friable. Two smaller lesions are located at the 3 and 5 o'clock positions on the vulva with a 5 o'clock lesion extending onto the inner thigh Bimanual exam reveals an unremarkable uterus and cervix. SPECIMENS REMOVED: Biopsies times 4. SPECIMEN DISPOSITION: Specimen 1 for frozen; specimens 2 through 4 for permanent. ESTIMATED BLOOD LOSS: Minimal. FLUIDS: 100 cc of lactated Ringer's. URINE OUTPUT: Quantity sufficient void prior to this procedure. COMPLICATIONS: None. INDICATIONS: The patient is an 84-year-old female who presented to the Emergency Room with hip pain. Upon inspection, a large ulcerative mass noted in vulva. The patient is admitted for pain management and workup. DESCRIPTION OF PROCEDURE: After informed consent was assured, the patient was taken to the operating room where anesthetic was obtained and she was placed in [facility] stirru. Using local anesthetic, biopsy sites are selected and injected with a 50:50 mixture of 1% lidocaine with epinephrine and Marcaine. Two sites are selected on the largest lesion on the right side of the vulva and extending into the vagina and one side was selected from both separate lesions on the left vulva. The area to be biopsied was elevated with pickups with teeth OPERATIVE REPORT [id number] CONRAD ASENCIO and then using a 15 blade, a small segment was taken. The initial biopsy was sent for frozen. The other 3 biopsies were taken for permanent specimen. All sites are closed with 3-0 Vicryl. The patient tolerated this procedure well and was taken to the recovery room in stable condition. Frozen section comes back strongly suspicious for invasive squamous cell carcinoma of the vulva. TRANSINT:[id number] Voice Confirmation ID: [id number] DOCUMENT ID: [id number] GENI SANDS MD at 1259 CC: [id number] DICTATION DATE: 06/22/19 1146 MORTGAGE LOAN COUNSELOR: 06/22/19 1451 ADM IN [facility] [address] [place] [address]
[2019-06-30 17:29] VITALS: BP 102/59
--- NOTE | 2019-06-30 18:37 | MORECARE ---
CASE MANAGEMENT DISCHARGE SUMMARY PATIENT: CONRAD ASENCIO UNIT: [id number] ADM DATE: 06/20/19 AGE: 84 : 35 SEX: F ROOM/BED: D.2215 AUTHOR: HOMERO,DOC PHYSICIAN: REFERRING PHYSICIAN: GENI SANDS MD DATE OF SERVICE: 06/30/19 Discharge Plan Patient Name: CONRAD ASENCIO Facility: [facility]:[place] : 1935 Planned Disposition: Home Anticipated Discharge Date: Discharge Date: Expected LOS: Initial Reviewer: [email or web address] Initial Review Date: 06/20/2019 Generated: 06/30/19 7:36 pm Comments DCP- Discharge Planning Updated by [email or web address]: Kendra Fajardo on 06/30/19 5:[address] CM notified this am that patient to discharge today. CM contacted Vivian with [facility] regarding patient and faxed updates. Vivian had multiple questions regarding whether patient will be getting cancer treatment. VAISHALI explained that patient is suppose to be evaluated at [facility] but [facility] will not evaluate patient until COVID 19 is over. Vivian wanted to know if britt is going to be left in and IV along with any antibiotics. Wounds and wound care and the patients ability to sit up in w/c for transport. CM discussed with Nursing. Vivian called back and stated that she needs to get in touch with family regarding financials and plan for discharge v/s placement after her 20 days are up. Vivian has been trying to get in touch with daughter Nay Asencio [phone] which is the only contact listed. One of patients daughters was here today and stated that the patient wasn't going any where until she has some kind of cancer treatment. Dr. Sands was notified to contact family. [facility] did send clinicals for Auth . CM will continue to follow and assist as needed with discharge planning / needs. DCP- Discharge Planning Updated by [email or web address]: Purvi Roldan on 06/28/19 3:[address] Sands called and stated that he spoke with the MD from [place] & he wants a Bx to determine the plan of care. He would order this with IR then he will speak with the Patient and her family. CM will continue to assist with DC planning as needed. If she plans to go to [facility] she will need updated therapy notes to be sent to [facility]. CM to follow and assist DCP- Discharge Planning Updated by [id number]: Tracey Franklin on 06/23/19 9:[address] Received call from patient's daughter Monica Asencio stating her mother will need to go to Rehab and she wants he to go to [facility] in [place]. ABHAY discussed over the phone and signed via telephone consent with Francie Fleming CM witnessing. CM received order for PT/OT consult as this is required for rehab. This patient is a managed medicare policy and will require authorization. Tracey Franklin RN, [facility] DCP- Discharge Planning Updated by [email or web address]: Purvi Roldan on 06/22/19 6:[address] Attempted to see the patient, but she was very sleepy. She stated that she lives alone in [place] is independent at home. During our conversation she was falling asleep again. I will attempt to see her again at a later time. CM to follow and assist with DC planning Last DP export: 06/28/19 3:52 p Patient Name: CONRAD ASENCIO Page 28465 at 1837 All edits/amendments must be made on the electronic document DICTATION DATE: 06/30/191835 DAIRY FARM WORKER: ALBERTA 06/30/191835 RPT#: [id number] DC DATE: STATUS: ADM IN [facility] [address] [place] [address] END OF REPORT
[2019-06-30 20:00] VITALS: BP 99/52
[2019-07-01 04:00] VITALS: BP 97/57
[2019-07-01 05:06] LABS: ANION GAP 15.4 mmol/L (8-16); CARBON DIOXIDE 18.6 mmol/L (21.0-32.0); CREATININE - SERUM 1.8 mg/dL (0.6-1.3); MAGNESIUM - SERUM 2.1 mg/dL (1.8-2.4); VANCOMYCIN - RANDOM 22.1 ug/mL (10.0-20.0)
[2019-07-01 05:13] LABS: BASOPHILS 0.3 % (0-2); EOSINOPHILS 0.6 % (0-7); HEMATOCRIT 28.4 % (36.0-48.0); HEMOGLOBIN 9.4 g/dL (12-16); LYMPHOCYTES 4.1 % (15-50); MCH 26.6 pg (26.0-34.0); MCHC 33.1 g/dL (31.0-37.0); MCV 80.5 fL (80.0-100.0); MEAN PLATELET VOLUME 9.1 fL (7.4-10.4); MONOCYTES 4.4 % (2-11); NEUTROPHILS 86.6 % (40-80); PLATELET COUNT 433 10x3/uL (130-400); RBC 3.53 10x6/uL (4.00-5.40); RDW 14.6 % (11.5-14.5); WBC 39.9 10x3/uL (4.8-10.8)
[2019-07-01 09:29] VITALS: BP 103/53
[2019-07-01 13:28] VITALS: BP 116/65
[2019-07-01 13:51] VITALS: BP 100/50
[2019-07-01 14:45] LABS: MCH 26.5 pg (26.0-34.0); MCHC 32.1 g/dL (31.0-37.0); MCV 82.4 fL (80.0-100.0); MEAN PLATELET VOLUME 9.2 fL (7.4-10.4); RBC 3.4 10x6/uL (4.00-5.40); RDW 14.5 % (11.5-14.5); WBC 33.7 10x3/uL (4.8-10.8)
[2019-07-01 14:50] LABS: APTT 37.5 SECONDS (22.8-39.4); INR 1.55 (0.85-1.17); PROTIME 18.4 SECONDS (11.6-15.0)
--- NOTE | 2019-07-01 14:54 | MORECARE ---
CASE MANAGEMENT DISCHARGE SUMMARY PATIENT: CONRAD ASENCIO UNIT: [id number] ADM DATE: 06/20/19 AGE: 84 : 35 SEX: F ROOM/BED: D.2215 AUTHOR: HOMERO,DOC PHYSICIAN: REFERRING PHYSICIAN: GENI SANDS MD DATE OF SERVICE: 07/01/19 Discharge Plan Patient Name: CONRAD ASENCIO Facility: [facility]:[place] : 1935 Planned Disposition: Home Anticipated Discharge Date: Discharge Date: Expected LOS: Initial Reviewer: [email or web address] Initial Review Date: 06/20/2019 Generated: 07/01/19 3:53 pm Comments DCP- Discharge Planning Updated by [email or web address]: Kendra Fajardo on 06/30/19 5:[address] CM notified this am that patient to discharge today. CM contacted Vivian with [facility] regarding patient and faxed updates. Vivian had multiple questions regarding whether patient will be getting cancer treatment. VAISHALI explained that patient is suppose to be evaluated at [facility] but [facility] will not evaluate patient until COVID 19 is over. Vivian wanted to know if britt is going to be left in and IV along with any antibiotics. Wounds and wound care and the patients ability to sit up in w/c for transport. CM discussed with Nursing. Vivian called back and stated that she needs to get in touch with family regarding financials and plan for discharge v/s placement after her 20 days are up. Vivian has been trying to get in touch with daughter Nay Asencio [phone] which is the only contact listed. One of patients daughters was here today and stated that the patient wasn't going any where until she has some kind of cancer treatment. Dr. Sands was notified to contact family. [facility] did send clinicals for Auth . CM will continue to follow and assist as needed with discharge planning / needs. DCP- Discharge Planning Updated by [id number]: Purvi Roldan on 06/28/19 3:[address] Sands called and stated that he spoke with the MD from [place] & he wants a Bx to determine the plan of care. He would order this with IR then he will speak with the Patient and her family. CM will continue to assist with DC planning as needed. If she plans to go to [facility] she will need updated therapy notes to be sent to [facility]. CM to follow and assist DCP- Discharge Planning Updated by [email or web address]: Tracey Franklin on 06/23/19 9:[address] Received call from patient's daughter Monica Asencio stating her mother will need to go to Rehab and she wants he to go to [facility] in [place]. ABHAY discussed over the phone and signed via telephone consent with Francie Fleming CM witnessing. CM received order for PT/OT consult as this is required for rehab. This patient is a managed medicare policy and will require authorization. Tracey Franklin RN, [facility] DCP- Discharge Planning Updated by [email or web address]: Purvi Jamar on 06/22/19 6:[address] Attempted to see the patient, but she was very sleepy. She stated that she lives alone in [place] is independent at home. During our conversation she was falling asleep again. I will attempt to see her again at a later time. CM to follow and assist with DC planning External Providers External Provider: [facility](provides inp Next Contact Date: Service Request Date: Service Type: Resolution: Reviewer: Comments: Last DP export: 06/30/19 5:37 p Patient Name: CONRAD ASENCIO Page 89650 at 1454 All edits/amendments must be made on the electronic document DICTATION DATE: 07/01/191452 CLINICAL ADVISOR: ALBERTA 07/01/191452 RPT#: [id number] DC DATE: STATUS: ADM IN [facility] [address] [place] [address] END OF REPORT
[2019-07-01 14:55] LABS: ALBUMIN 1.1 g/dL (3.4-5.0); BILIRUBIN - TOTAL 0.27 mg/dL (0.2-1.3); POTASSIUM - SERUM 4.2 mmol/L (3.5-5.1); PROTEIN - SERUM 6.2 g/dL (6.4-8.2)
[2019-07-01 14:57] LABS: ANION GAP 14.2 mmol/L (8-16); CALCIUM 12.4 mg/dL (8.5-10.1)
[2019-07-01 17:52] VITALS: BP 95/48
--- NOTE | 2019-07-01 19:47 | MORECARE ---
CASE MANAGEMENT DISCHARGE SUMMARY PATIENT: CONRAD ASENCIO UNIT: [id number] ADM DATE: 06/20/19 AGE: 84 : 35 SEX: F ROOM/BED: D.0006 AUTHOR: HOMERO,DOC PHYSICIAN: REFERRING PHYSICIAN: GENI SANDS MD DATE OF SERVICE: 07/01/19 Discharge Plan Patient Name: CONRAD ASENCIO Facility: [facility]:[place] : 1935 Planned Disposition: Home Anticipated Discharge Date: Discharge Date: Expected LOS: Initial Reviewer: [email or web address] Initial Review Date: 06/20/2019 Generated: 07/01/19 8:47 pm Comments DCP- Discharge Planning Updated by [email or web address]: Kendra Fajardo on 07/01/19 6:[address] CM was notified that family has decided upon hospice. CM called and spoke to Nay Asencio [phone]. ABHAY verbally given for [facility]. CM contacted Hospice and faxed records. Family called and stated they would be up here later to meet with Hospice nurse. CM contacted [facility] since patient's family is here waiting. CM received call back that nurse is on her way to evaluate and meet with family. Hospice nurse here and evaluated patient. HOSPICE STATED THAT PATIENT WASN'T GIP APPROPRIATE AT THIS TIME if patient symptoms worsen then they can re-eval. They would be willing to admit to hospice at home if family agrees. Hospice nurse to call family and let them know decision. CM will continue to follow and assist as needed. DCP- Discharge Planning Updated by [email or web address]: Kendra Fajardo on 06/30/19 5:[address] CM notified this am that patient to discharge today. CM contacted Vviian with [facility] regarding patient and faxed updates. Vivian had multiple questions regarding whether patient will be getting cancer treatment. CM explained that patient is suppose to be evaluated at [facility] but [facility] will not evaluate patient until COVID 19 is over. Vivian wanted to know if britt is going to be left in and IV along with any antibiotics. Wounds and wound care and the patients ability to sit up in w/c for transport. CM discussed with Nursing. Vivian called back and stated that she needs to get in touch with family regarding financials and plan for discharge v/s placement after her 20 days are up. Vivian has been trying to get in touch with daughter Nay Asencio [phone] which is the only contact listed. One of patients daughters was here today and stated that the patient wasn't going any where until she has some kind of cancer treatment. Dr. Sands was notified to contact family. [facility] did send clinical[facility] for Auth . CM will continue to follow and assist as needed with discharge planning / needs. DCP- Discharge Planning Updated by [id number]: Purvi Roldan on 06/28/19 3:[address] Sands called and stated that he spoke with the MD from [place] & he wants a Bx to determine the plan of care. He would order this with IR then he will speak with the Patient and her family. CM will continue to assist with DC planning as needed. If she plans to go to [facility] she will need updated therapy notes to be sent to [facility]. CM to follow and assist DCP- Discharge Planning Updated by [id number]: Tracey Franklin on 06/23/19 9:[address] Received call from patient's daughter Monica Asencio stating her mother will need to go to Rehab and she wants he to go to [facility] in [place]. ABHAY discussed over the phone and signed via telephone consent with Francie Fleming CM witnessing. CM received order for PT/OT consult as this is required for rehab. This patient is a managed medicare policy and will require authorization. Tracey Franklin RN, [facility] DCP- Discharge Planning Updated by [id number]: Puriv Roldan on 06/22/19 6:[address] Attempted to see the patient, but she was very sleepy. She stated that she lives alone in [place] is independent at home. During our conversation she was falling asleep again. I will attempt to see her again at a later time. CM to follow and assist with DC planning Last DP export: 07/01/19 1:54 p Patient Name: CONRAD ASENCIO Page 96693 at 194 All edits/amendments must be made on the electronic document DICTATION DATE: 07/01/191946 CHROMOSOMAL DISORDERS COUNSELOR: ALBERTA 07/01/191946 RPT#: [id number] DC DATE: STATUS: ADM IN [facility] [address] [place] [address] END OF REPORT
--- NOTE | 2019-07-01 19:55 | MORECARE ---
CASE MANAGEMENT DISCHARGE SUMMARY PATIENT: CONRAD ASENCIO UNIT: [id number] ADM DATE: 06/20/19 AGE: 84 : 35 SEX: F ROOM/BED: D.1935 AUTHOR: HOMERO,DOC PHYSICIAN: REFERRING PHYSICIAN: GENI SANDS MD DATE OF SERVICE: 07/01/19 Discharge Plan Patient Name: CONRAD ASENCIO Facility: [facility]:[place] : 1935 Planned Disposition: Home Anticipated Discharge Date: Discharge Date: Expected LOS: Initial Reviewer: [email or web address] Initial Review Date: 06/20/2019 Generated: 07/01/19 8:54 pm Comments DCP- Discharge Planning Updated by [email or web address]: Kendra Fajardo on 07/01/19 6:[address] CM was notified that family has decided upon hospice. CM called and spoke to Nya Asencio [phone]. ABHAY verbally given for [facility]. CM contacted Hospice and faxed records. Family called and stated they would be up here later to meet with Hospice nurse. CM contacted [facility] since patient's family is here waiting. CM received call back that nurse is on her way to evaluate and meet with family. Hospice nurse here and evaluated patient. HOSPICE STATED THAT PATIENT WASN'T GIP APPROPRIATE AT THIS TIME if patient symptoms worsen then they can re-eval. They would be willing to admit to hospice at home if family agrees. Hospice nurse to call family and let them know decision. CM will continue to follow and assist as needed. DCP- Discharge Planning Updated by [email or web address]: Kendra Fajardo on 06/30/19 5:[address] CM notified this am that patient to discharge today. CM contacted Vivian with [facility] regarding patient and faxed updates. Vivian had multiple questions regarding whether patient will be getting cancer treatment. CM explained that patient is suppose to be evaluated at [facility] but [facility] will not evaluate patient until COVID 19 is over. Vivian wanted to know if britt is going to be left in and IV along with any antibiotics. Wounds and wound care and the patients ability to sit up in w/c for transport. CM discussed with Nursing. Vivian called back and stated that she needs to get in touch with family regarding financials and plan for discharge v/s placement after her 20 days are up. Vivian has been trying to get in touch with daughter Nay Asencio [phone] which is the only contact listed. One of patients daughters was here today and stated that the patient wasn't going any where until she has some kind of cancer treatment. Dr. Sands was notified to contact family. [facility] did send clinicals for Auth . CM will continue to follow and assist as needed with discharge planning / needs. DCP- Discharge Planning Updated by [id number]: Purvi Roldan on 06/28/19 3:[address] Sands called and stated that he spoke with the MD from [place] & he wants a Bx to determine the plan of care. He would order this with IR then he will speak with the Patient and her family. CM will continue to assist with DC planning as needed. If she plans to go to [facility] she will need updated [facility]. CM to follow and assist DCP- Discharge Planning Updated by [id number]: Tracey Franklin on 06/23/19 9:[address] Received call from patient's daughter Monica Asencio stating her mother will need to go to Rehab and she wants he to go to [facility] in [place]. ABHAY discussed over the phone and signed via telephone consent with Francie Fleming CM witnessing. CM received order for PT/OT consult as this is required for rehab. This patient is a managed medicare policy and will require authorization. Tracey Franklin RN, [facility] DCP- Discharge Planning Updated by [email or web address]: Purvi Roldan on 06/22/19 6:[address] Attempted to see the patient, but she was very sleepy. She stated that she lives alone in [place] is independent at home. During our conversation she was falling asleep again. I will attempt to see her again at a later time. CM to follow and assist with DC planning Last DP export: 07/01/19 6:48 p Patient Name: CONRAD ASENCIO Page [id number] at 1954 All edits/amendments must be made on the electronic document DICTATION DATE: 07/01/191953 ENTEROSTOMAL THERAPY NURSE: ALBERTA 07/01/191953 RPT#: [id number] DC DATE: STATUS: ADM IN [facility] [address] [facility] [place] [address] END OF REPORT
[2019-07-01 20:00] VITALS: BP 100/51
[2019-07-02] VITALS: BP 118/59
[2019-07-02 04:00] VITALS: BP 96/53
[2019-07-02 05:35] LABS: HEMATOCRIT 29.5 % (36.0-48.0); HEMOGLOBIN 9.4 g/dL (12-16); MCHC 31.9 g/dL (31.0-37.0); MCV 81.7 fL (80.0-100.0); PLATELET COUNT 426 10x3/uL (130-400); RBC 3.61 10x6/uL (4.00-5.40); RDW 14.7 % (11.5-14.5); WBC 32.2 10x3/uL (4.8-10.8)
[2019-07-02 05:43] LABS: EOSINOPHILS 1 % (0-7); LYMPHOCYTES 5 % (15-50); MONOCYTES 6 % (2-11); NEUTROPHILS 80 % (40-80); PLATELET ESTIMATE INCREASED
[2019-07-02 05:58] LABS: CARBON DIOXIDE 17.7 mmol/L (21.0-32.0); CREATININE - SERUM 2.1 mg/dL (0.6-1.3); MAGNESIUM - SERUM 2.1 mg/dL (1.8-2.4); VANCOMYCIN - RANDOM 13.8 ug/mL (10.0-20.0)
[2019-07-02 05:59] LABS: ANION GAP 18.3 mmol/L (8-16); CALCIUM 12.7 mg/dL (8.5-10.1)
[2019-07-02 08:24] VITALS: BP 110/49
[2019-07-02 12:54] VITALS: BP 92/45
[2019-07-02 16:47] VITALS: BP 117/72
[2019-07-02 20:30] VITALS: BP 103/52
[2019-07-03 05:02] VITALS: BP 122/59
[2019-07-03 06:08] LABS: BASOPHILS 0.5 % (0-2); HEMATOCRIT 28.2 % (36.0-48.0); IMMATURE GRANULOCYTES 6.2 % (0-5); LYMPHOCYTES 6.3 % (15-50); MCH 26.6 pg (26.0-34.0); MCHC 31.9 g/dL (31.0-37.0); MCV 83.4 fL (80.0-100.0); MEAN PLATELET VOLUME 9.7 fL (7.4-10.4); MONOCYTES 3.6 % (2-11); NEUTROPHILS 82.4 % (40-80); PLATELET COUNT 405 10x3/uL (130-400); RBC 3.38 10x6/uL (4.00-5.40); RDW 14.8 % (11.5-14.5); WBC 30.9 10x3/uL (4.8-10.8)
[2019-07-03 06:12] LABS: ANION GAP 13.1 mmol/L (8-16); CALCIUM 11.8 mg/dL (8.5-10.1); CARBON DIOXIDE 19.7 mmol/L (21.0-32.0); POTASSIUM - SERUM 3.8 mmol/L (3.5-5.1); VANCOMYCIN - RANDOM 16.8 ug/mL (10.0-20.0)
[2019-07-03 08:33] VITALS: BP 102/53
--- NOTE | 2019-07-03 11:40 | MORECARE ---
CASE MANAGEMENT DISCHARGE SUMMARY PATIENT: CONRAD ASENCIO UNIT: [id number] ADM DATE: 06/20/19 AGE: 84 : 35 SEX: F ROOM/BED: D.6543 AUTHOR: SHAY VALENTIN PHYSICIAN: REFERRING PHYSICIAN: GENI SANDS MD DATE OF SERVICE: 07/03/19 Discharge Plan Patient Name: CONRAD ASENCIO Facility: [facility]:[place] : 1935 Planned Disposition: Home Anticipated Discharge Date: Discharge Date: Expected LOS: Initial Reviewer: [id number] Initial Review Date: 06/20/2019 Generated: 07/03/19 12:40 pm Comments DCP- Discharge Planning Updated by [email or web address]: Luly Patel on 07/03/19 10:[address] CM SPOKE WITH NURSING ABOUT THE CONDITION OF PATIENT. NURSING STATED THE PATIENT HAS INCREASED PAIN, AND HYPOTENSIVE AND WAS NOT ABLE TO RECIEVE PAIN MEDICATION. ASKED ABOUT THE HOSPICE REFERRAL. CALLED [facility] AND SPOKE WITH THE ONCALL NURSE (CELESTE). UPDATED CONDITION. CELESTE WILL BE BY TO RE-EVALUATE. CALLED NAY AT [phone]. SHE STATED SHE WAS NOT ABLE TO CARE FOR THE PATIENT IN THE HOME SETTING. STATED IF VICKY WAS NOT ABLE TO DO GIP, TO CALL [facility]. CM WILL CONTINUE TO ASSIST NEEDED. LULY PATEL MSN,RN,CM Appended by Luly Patel on 07/03/2019 11:38 CDT: CM was notified that family has decided upon hospice. CM called and spoke to Nay Asencio [phone]. ABHAY verbally given for [facility]. CM contacted Hospice and faxed records. Family called and stated they would be up here later to meet with Hospice nurse. CM contacted [facility] since patient's family is here waiting. CM received call back that nurse is on her way to evaluate and meet with family. Hospice nurse here and evaluated patient. HOSPICE STATED THAT PATIENT WASN'T GIP APPROPRIATE AT THIS TIME if patient symptoms worsen then they can re-eval. They would be willing to admit to hospice at home if family agrees. Hospice nurse to call family and let them know decision. CM will continue to follow and assist as needed. DCP- Discharge Planning Updated by [id number]: Kendra Fajardo on 06/30/19 5:[address] CM notified this am that patient to discharge today. CM contacted Vivian with [facility] regarding patient and faxed updates. Vivian had multiple questions regarding whether patient will be getting cancer treatment. CM explained that patient is suppose to be evaluated at [facility] but [facility] will not evaluate patient until COVID 19 is over. Vivian wanted to know if britt is going to be left in and IV along with any antibiotics. Wounds and wound care and the patients ability to sit up in w/c for transport. CM discussed with Nursing. Vivian called back and stated that she needs to get in touch with family regarding financials and plan for discharge v/s placement after her 20 days are up. Vivian has been trying to get in touch with daughter Nay Asencio [phone] which is the only contact listed. One of patients daughters was here today and stated that the patient wasn't going any where until she has some kind of cancer treatment. Dr. Sands was notified to contact family. [facility] did send clinicals for Auth . CM will continue to follow and assist as needed with discharge planning / needs. DCP- Discharge Planning Updated by [email or web address]: Purvi Roldan on 06/28/19 3:[address] Sands called and stated that he spoke with the MD from [place] & he wants a Bx to determine the plan of care. He would order this with IR then he will speak with the Patient and her family. CM will continue to assist with DC planning as needed. If she plans to go to [facility] she will need updated therapy notes to be sent to [facility]. CM to follow and assist DCP- Discharge Planning Updated by [email or web address]: Tracey Franklin on 06/23/19 9:[address] Received call from patient's daughter Monica Asencio stating her mother will need to go to Rehab and she wants he to go to [facility] in [place]. ABHAY discussed over the phone and signed via telephone consent with Francie Fleming CM witnessing. CM received order for PT/OT consult as this is required for rehab. This patient is a managed medicare policy and will require authorization. Tracey Franklin RN, [facility] DCP- Discharge Planning Updated by [id number]: Purvi Roldan on 06/22/19 6:[address] Attempted to see the patient, but she was very sleepy. She stated that she lives alone in [place] is independent at home. During our conversation she was falling asleep again. I will attempt to see her again at a later time. CM to follow and assist with DC planning Last DP export: 07/01/19 6:54 p Patient Name: CONRAD ASENCIO Page 20090 at 1140 All edits/amendments must be made on the electronic document DICTATION DATE: 07/03/19 1140 IMMIGRATION SERVICES OFFICER: ALBERTA 07/03/19 1140 RPT#: [id number] DC DATE: STATUS: ADM IN [facility] [address] [place] [address] END OF REPORT
[2019-07-03 12:05] VITALS: BP 107/50
--- NOTE | 2019-07-03 13:08 | MORECARE ---
CASE MANAGEMENT DISCHARGE SUMMARY PATIENT: CONRAD ASENCIO UNIT: [id number] ADM DATE: 06/20/19 AGE: 84 : 35 SEX: F ROOM/BED: D.2654 AUTHOR: HOMERO,DOC PHYSICIAN: REFERRING PHYSICIAN: GENI SANDS MD DATE OF SERVICE: 07/03/19 Discharge Plan Patient Name: CONRAD ASENCIO Facility: [facility]:[place] : 1935 Planned Disposition: Home Anticipated Discharge Date: Discharge Date: Expected LOS: Initial Reviewer: [email or web address] Initial Review Date: 06/20/2019 Generated: 07/03/19 2:07 pm Comments DCP- Discharge Planning Updated by [id number]: Luly Patel on 07/03/19 12:[address] CM SPOKE WITH NURSING ABOUT THE CONDITION OF PATIENT. NURSING STATED THE PATIENT HAS INCREASED PAIN, AND HYPOTENSIVE AND WAS NOT ABLE TO RECIEVE PAIN MEDICATION. ASKED ABOUT THE HOSPICE REFERRAL. CALLED [facility] AND SPOKE WITH THE ONCALL NURSE (CELESTE). UPDATED CONDITION. CELESTE WILL BE BY TO RE-EVALUATE. CALLED NAY AT [phone]. SHE STATED SHE WAS NOT ABLE TO CARE FOR THE PATIENT IN THE HOME SETTING, AND WANTED HER FAMILY MEMBER TO BE COMFORTABLE. STATED IF [facility] WAS NOT ABLE TO DO GIP, TO CALL [facility]. CM WILL CONTINUE TO ASSIST NEEDED. LULY PATEL MSN,RN,CM Appended by Luly Patel on 07/03/2019 11:38 CDT: CM was notified that family has decided upon hospice. CM called and spoke to Nay Asencio [phone]. ABHAY verbally given for GIP [facility]. CM contacted Hospice and faxed records. Family called and stated they would be up here later to meet with Hospice nurse. CM contacted [facility] since patient's family is here waiting. CM received call back that nurse is on her way to evaluate and meet with family. Hospice nurse here and evaluated patient. HOSPICE STATED THAT PATIENT WASN'T GIP APPROPRIATE AT THIS TIME if patient symptoms worsen then they can re-eval. They would be willing to admit to hospice at home if family agrees. Hospice nurse to call family and let them know decision. VAISHALI will continue to follow and assist as needed. DCP- Discharge Planning Updated by [id number]: Kendra Fajardo on 06/30/19 5:[address] CM notified this am that patient to discharge today. CM contacted Vivian with [facility] regarding patient and faxed updates. Vivian had multiple questions regarding whether patient will be getting cancer treatment. CM explained that patient is suppose to be evaluated at [facility] but [facility] will not evaluate patient until COVID 19 is over. Vivian wanted to know if britt is going to be left in and IV along with any antibiotics. Wounds and wound care and the patients ability to sit up in w/c for transport. CM discussed with Nursing. Vivian called back and stated that she needs to get in touch with family regarding financials and plan for discharge v/s placement after her 20 days are up. Vivian has been trying to get in touch with daughter Nay Asencio [phone] which is the only contact listed. One of patients daughters was here today and stated that the patient wasn't going any where until she has some kind of cancer treatment. Dr. Sands was notified to contact family. [facility] did send clinicals for Auth . CM will continue to follow and assist as needed with discharge planning / needs. DCP- Discharge Planning Updated by [id number]: Purvi Roldan on 06/28/19 3:[address] Sands called and stated that he spoke with the MD from [facility] & he wants a Bx to determine the plan of care. He would order this with IR then he will speak with the Patient and her family. CM will continue to assist with DC planning as needed. If she plans to go to [facility] she will need updated therapy notes to be sent to [facility]. CM to follow and assist DCP- Discharge Planning Updated by [email or web address]: Tracey Franklin on 06/23/19 9:[address] Received call from patient's daughter Monica Asencio stating her mother will need to go to Rehab and she wants he to go to [facility] in [place]. ABHAY discussed over the phone and signed via telephone consent with Francie Fleming CM witnessing. CM received order for PT/OT consult as this is required for rehab. This patient is a managed medicare policy and will require authorization. Tracey Franklin RN, [facility] DCP- Discharge Planning Updated by [id number]: Purvi Roldan on 06/22/19 6:[address] Attempted to see the patient, but she was very sleepy. She stated that she lives alone in [place] is independent at home. During our conversation she was falling asleep again. I will attempt to see her again at a later time. CM to follow and assist with DC planning Coverage Notice Reviewer: [id number] Haylee Patel Notice Issued Date-Time: 07/03/2019 11:30 Notice Type: Patient Choice Letter Notice Delivered To: Family Member Relationship to Patient: Wax Cutter Name: NAY Delivery Method: PHONE - Phone Jannette Days: Prior Verbal Notification: Yes Recipient Understood Notice: Yes Recipient Signature: Med Rec Note Co-signed by Attending: Coverage Notice Comment: ABHAY VERBALIZED FOR [facility] Last DP export: 07/03/19 10:40 a Patient Name: CONRAD ASENCIO Page [id number] at 1308 All edits/amendments must be made on the electronic document DICTATION DATE: 07/03/19 1307 MACHINE REPAIR PERSON: ALBERTA 07/03/19 1307 RPT#: [id number] DC DATE: STATUS: ADM IN [facility] [address] [place] [address] END OF REPORT
--- NOTE | 2019-07-03 15:37 | MORECARE ---
CASE MANAGEMENT DISCHARGE SUMMARY PATIENT: CONRAD ASENCIO UNIT: [id number] ADM DATE: 06/20/19 AGE: 84 : 35 SEX: F ROOM/BED: D.2215 AUTHOR: HOMERODOC PHYSICIAN: REFERRING PHYSICIAN: GENI SANDS MD DATE OF SERVICE: 07/03/19 Discharge Plan Patient Name: CONRAD ASENCIO Facility: [facility]:[place] : 1935 Planned Disposition: Home Anticipated Discharge Date: Discharge Date: Expected LOS: Initial Reviewer: [email or web address] Initial Review Date: 06/20/2019 Generated: 07/03/19 4:37 pm Comments DCP- Discharge Planning Updated by [id number]: Luly Patel on 07/03/19 2:[address] Appended by Luly Patel on 07/03/2019 15:32 CDT: 1530. CM SPOKE WITH NAY AND MONICA DTRS TO PATIENT ON [address]. FAMILY UNHAPPY WITH HOSPICE PRECEDINGS, AND DID NOT UNDERSTAND WHY PATIENT WAS NOT HOSPICE APPROPRIATE. STATED FAMILY IS UNABLE TO PROVIDE CARE FOR PATIENT IN THE HOME SETTING. MONICA STATES SHE MAY POTENTIALLY HAVE COVID- 19. CM PROVIDED EDUCATION ABOUT THE HOSPICE CRITERIA, AND ALLOWED FAMILY TO VOICE CONCERNS. PROVIDED UPDATE TO POC, AND COMFORT CARE WHILE IN THE HOSPITAL. FAMILY EXPRESSED APPRETIATION FOR NURSING STAFF. FAMILY WISHES TO HAVE A PHYSCIAN SPEAK WITH THEM REGUARDING THE CARE, AND DIAGNOSIS. VAISHALI SPOKE WITH DR MCGRATH WHILE IN HOSPITAL WHO HAS AGREED TO SPEAK WITH NAY AT [phone]. VAISHALI WILL FOLLOW ALONG. Cristine PATEL MSN,RN,CM VAISHALI SPOKE WITH NURSING ABOUT THE CONDITION OF PATIENT. NURSING STATED THE PATIENT HAS INCREASED PAIN, AND HYPOTENSIVE AND WAS NOT ABLE TO RECIEVE PAIN MEDICATION. ASKED ABOUT THE HOSPICE REFERRAL. CALLED [facility] AND SPOKE WITH THE ONCALL NURSE (CELESTE). UPDATED CONDITION. CELESTE WILL BE BY TO RE-EVALUATE. CALLED NAY AT [phone]. SHE STATED SHE WAS NOT ABLE TO CARE FOR THE PATIENT IN THE HOME SETTING, AND WANTED HER FAMILY MEMBER TO BE COMFORTABLE. STATED IF [facility] WAS NOT ABLE TO DO GIP, TO CALL [facility]. CM WILL CONTINUE TO ASSIST NEEDED. LULY PATEL MSN,RN,CM Appended by Luly Patel on 07/03/2019 11:38 CDT: CM was notified that family has decided upon hospice. CM called and spoke to Nay Asencio [phone]. ABHAY verbally given for GIP [facility]. CM contacted Hospice and faxed records. Family called and stated they would be up here later to meet with Hospice nurse. CM contacted [facility] since patient's family is here waiting. CM received call back that nurse is on her way to evaluate and meet with family. Hospice nurse here and evaluated patient. HOSPICE STATED THAT PATIENT WASN'T GIP APPROPRIATE AT THIS TIME if patient symptoms worsen then they can re-eval. They would be willing to admit to hospice at home if family agrees. Hospice nurse to call family and let them know decision. CM will continue to follow and assist as needed. DCP- Discharge Planning Updated by [email or web address]: Kendra Fajardo on 06/30/19 5:[address] CM notified this am that patient to discharge today. CM contacted Vivian with [facility] regarding patient and faxed updates. Vivian had multiple questions regarding whether patient will be getting cancer treatment. CM explained that patient is suppose to be evaluated at [facility] but [facility] will not evaluate patient until COVID 19 is over. Vivian wanted to know if britt is going to be left in and IV along with any antibiotics. Wounds and wound care and the patients ability to sit up in w/c for transport. CM discussed with Nursing. Vivian called back and stated that she needs to get in touch with family regarding financials and plan for discharge v/s placement after her 20 days are up. Vivian has been trying to get in touch with daughter Nay Asencio [phone] which is the only contact listed. One of patients daughters was here today and stated that the patient wasn't going any where until she has some kind of cancer treatment. Dr. Sands was notified to contact family. [facility] did send clinicals for Auth . CM will continue to follow and assist as needed with discharge planning / needs. DCP- Discharge Planning Updated by [email or web address]: Purvi Roldan on 06/28/19 3:[address] Sands called and stated that he spoke with the MD from [place] & he wants a Bx to determine the plan of care. He would order this with IR then he will speak with the Patient and her family. CM will continue to assist with DC planning as needed. If she plans to go to [facility] she will need updated therapy notes to be sent to [facility]. CM to follow and assist DCP- Discharge Planning Updated by [id number]: Tracey Franklin on 06/23/19 9:[address] Received call from patient's daughter Monica Asencio stating her mother will need to go to Rehab and she wants he to go to [facility] in [place]. ABHAY discussed over the phone and signed via telephone consent with Francie Fleming CM witnessing. CM received order for PT/OT consult as this is required for rehab. This patient is a managed medicare policy and will require authorization. Tracey Franklin RN, [facility] DCP- Discharge Planning Updated by [email or web address]: Purvi Roldan on 06/22/19 6:[address] Attempted to see the patient, but she was very sleepy. She stated that she lives alone in [place] is independent at home. During our conversation she was falling asleep again. I will attempt to see her again at a later time. CM to follow and assist with DC planning Coverage Notice Reviewer: [id number] Hayele Patel Notice Issued Date-Time: 07/03/2019 11:30 Notice Type: Patient Choice Letter Notice Delivered To: Family Member Relationship to Patient: Account Relationship Manager Name: NAY Delivery Method: PHONE - Phone Jannette Days: Prior Verbal Notification: Yes Recipient Understood Notice: Yes Recipient Signature: Med Rec Note Co-signed by Attending: Coverage Notice Comment: ABHAY VERBALIZED FOR [facility] Last DP export: 07/03/19 12:08 p Patient Name: CONRAD ASENCIO Page [id number] at 1537 All edits/amendments must be made on the electronic document DICTATION DATE: 07/03/191536 REHAB RN: ALBERTA 07/03/191536 RPT#: [id number] DC DATE: STATUS: ADM IN [place] [address] [place] [address] END OF REPORT
[2019-07-03 20:30] VITALS: BP 98/54
[2019-07-04 04:38] VITALS: BP 104/68
[2019-07-04 08:16] VITALS: BP 88/37
[2019-07-04 16:20] VITALS: BP 89/45
[2019-07-04 20:00] VITALS: BP 99/45
[2019-07-05 08:55] VITALS: BP 85/45
--- NOTE | 2019-07-05 18:07 | MORECARE ---
CASE MANAGEMENT DISCHARGE SUMMARY PATIENT: CONRAD ASENCIO UNIT: [id number] ADM DATE: 06/20/19 AGE: 84 : 35 SEX: F ROOM/BED: D.2217 AUTHOR: HOMERO,DOC PHYSICIAN: REFERRING PHYSICIAN: GENI SANDS MD DATE OF SERVICE: 07/05/19 Discharge Plan Patient Name: CONRAD ASENCIO Facility: [facility]:[place] : 1935 Planned Disposition: Home Anticipated Discharge Date: Discharge Date: Expected LOS: Initial Reviewer: [email or web address] Initial Review Date: 06/20/2019 Generated: 07/05/19 7:06 pm Comments DCP- Discharge Planning Updated by [id number]: Kendra Fajardo on 07/05/19 5:[address] CM spoke with Danial with [facility] to see about having them re-evaluate patient for [facility]. CM gave Danial an update and he stated he would have a nurse to come and evaluate. CM explained that the family got a little upset on Thursday night because they waited for over 2 hours on nurse to arrive and then they didn't accept. CM requested that nurse come to evaluate and then if patient meets criteria then call family to sign legals. CM will continue to follow and assist as needed with discharge planning / needs. DCP- Discharge Planning Updated by [id number]: Luly Patel on 07/03/19 2:[address] Appended by Luly Patel on 07/03/2019 15:32 CDT: 1530. CM SPOKE WITH ROBERT MARTEL DTRS TO PATIENT ON [address] CALL. FAMILY UNHAPPY WITH HOSPICE PRECEDINGS, AND DID NOT UNDERSTAND WHY PATIENT WAS NOT HOSPICE APPROPRIATE. STATED FAMILY IS UNABLE TO PROVIDE CARE FOR PATIENT IN THE HOME SETTING. MONICA STATES SHE MAY POTENTIALLY HAVE COVID- 19. CM PROVIDED EDUCATION ABOUT THE HOSPICE CRITERIA, AND ALLOWED FAMILY TO VOICE CONCERNS. PROVIDED UPDATE TO POC, AND COMFORT CARE WHILE IN THE HOSPITAL. FAMILY EXPRESSED APPRETIATION FOR NURSING STAFF. FAMILY WISHES TO HAVE A PHYSCIAN SPEAK WITH THEM REGUARDING THE CARE, AND DIAGNOSIS. VAISHALI SPOKE WITH DR MCGRATH WHILE IN HOSPITAL WHO HAS AGREED TO SPEAK WITH NAY AT [phone]. CM WILL FOLLOW ALONG. Cristine PATEL MSN,RN,CM CM SPOKE WITH NURSING ABOUT THE CONDITION OF PATIENT. NURSING STATED THE PATIENT HAS INCREASED PAIN, AND HYPOTENSIVE AND WAS NOT ABLE TO RECIEVE PAIN MEDICATION. ASKED ABOUT THE HOSPICE REFERRAL. CALLED [facility] AND SPOKE WITH THE ONCALL NURSE (CELESTE). UPDATED CONDITION. CELESTE WILL BE BY TO RE-EVALUATE. CALLED NAY AT [phone]. SHE STATED SHE WAS NOT ABLE TO CARE FOR THE PATIENT IN THE HOME SETTING, AND WANTED HER FAMILY MEMBER TO BE COMFORTABLE. STATED IF [facility] WAS NOT ABLE TO DO GIP, TO CALL [facility]. CM WILL CONTINUE TO ASSIST NEEDED. LULY PATEL MSN,RN,CM Appended by Luly Patel on 07/03/2019 11:38 CDT: CM was notified that family has decided upon hospice. CM called and spoke to Nay Asencio [phone]. ABHAY verbally given for [facility]IP [facility]. CM contacted Hospice and faxed records. Family called and stated they would be up here later to meet with Hospice nurse. CM contacted [facility] since patient's family is here waiting. CM received call back that nurse is on her way to evaluate and meet with family. Hospice nurse here and evaluated patient. HOSPICE STATED THAT PATIENT WASN'T GIP APPROPRIATE AT THIS TIME if patient symptoms worsen then they can re-eval. They would be willing to admit to hospice at home if family agrees. Hospice nurse to call family and let them know decision. CM will continue to follow and assist as needed. DCP- Discharge Planning Updated by [id number]: Kendra Fajardo on 06/30/19 5:[address] CM notified this am that patient to discharge today. CM contacted Vivian with [facility] regarding patient and faxed updates. Vivian had multiple questions regarding whether patient will be getting cancer treatment. VAISHALI explained that patient is suppose to be evaluated at [facility] but [facility] will not evaluate patient until COVID 19 is over. Vivian wanted to know if britt is going to be left in and IV along with any antibiotics. Wounds and wound care and the patients ability to sit up in w/c for transport. CM discussed with Nursing. Vivian called back and stated that she needs to get in touch with family regarding financials and plan for discharge v/s placement after her 20 days are up. Vivian has been trying to get in touch with daughter Nay Asencio [phone] which is the only contact listed. One of patients daughters was here today and stated that the patient wasn't going any where until she has some kind of cancer treatment. Dr. Sands was notified to contact family. [facility] did send clinicals for Auth . CM will continue to follow and assist as needed with discharge planning / needs. DCP- Discharge Planning Updated by [email or web address]: Purvi Roldan on 06/28/19 3:[address] Sands called and stated that he spoke with the MD from [facility] & he wants a Bx to determine the plan of care. He would order this with IR then he will speak with the Patient and her family. CM will continue to assist with DC planning as needed. If she plans to go to [facility] she will need updated therapy notes to be sent to [facility]. CM to follow and assist DCP- Discharge Planning Updated by [id number]: Tracey Franklin on 06/23/19 9:[address] Received call from patient's daughter Monica Asencio stating her mother will need to go to Rehab and she wants he to go to [facility] in [place]. ABHAY discussed over the phone and signed via telephone consent with Francie Fleming CM witnessing. CM received order for PT/OT consult as this is required for rehab. This patient is a managed medicare policy and will require authorization. Tracey Franklin RN, [facility] DCP- Discharge Planning Updated by [id number]: Purvi Roldan on 06/22/19 6:[address] Attempted to see the patient, but she was very sleepy. She stated that she lives alone in [place] is independent at home. During our conversation she was falling asleep again. I will attempt to see her again at a later time. CM to follow and assist with DC planning Coverage Notice Reviewer: [id number] Haylee Patel Notice Issued Date-Time: 07/03/2019 11:30 Notice Type: Patient Choice Letter Notice Delivered To: Family Member Relationship to Patient: School Counselor Name: NAY Delivery Method: PHONE - Phone Jannette Days: Prior Verbal Notification: Yes Recipient Understood Notice: Yes Recipient Signature: Med Rec Note Co-signed by Attending: Coverage Notice Comment: ABHAY VERBALIZED FOR [facility] Last DP export: 07/03/19 2:37 p Patient Name: CONRAD ASENCIO Page [id number] at 1807 All edits/amendments must be made on the electronic document DICTATION DATE: 07/05/191805 DOOR CORE ASSEMBLER: ALBERTA 07/05/191805 RPT#: [id number] DC DATE: STATUS: ADM IN [facility] [address] [place] [address] END OF REPORT
[2019-07-06 08:00] VITALS: BP 96/57
--- NOTE | 2019-07-06 20:24 | MORECARE ---
CASE MANAGEMENT DISCHARGE SUMMARY PATIENT: CONRAD ASENCIO UNIT: [id number] ADM DATE: 06/20/19 AGE: 84 : 35 SEX: F ROOM/BED: D.2215 AUTHOR: HOMERO,DOC PHYSICIAN: REFERRING PHYSICIAN: GENI SANDS MD DATE OF SERVICE: 07/06/19 Discharge Plan Patient Name: CONRAD ASENCIO Facility: [facility]:[place] : 1935 Planned Disposition: Home Anticipated Discharge Date: Discharge Date: Expected LOS: Initial Reviewer: [id number] Initial Review Date: 06/20/2019 Generated: 07/06/19 9:24 pm Comments DCP- Discharge Planning Updated by [id number]: Kendra Fajardo on 07/05/19 5:[address] CM spoke with Danial with [facility] to see about having them re-evaluate patient for [facility]. CM gave Danial an update and he stated he would have a nurse to come and evaluate. CM explained that the family got a little upset on Thursday night because they waited for over 2 hours on nurse to arrive and then they didn't accept. CM requested that nurse come to evaluate and then if patient meets criteria then call family to sign legals. CM will continue to follow and assist as needed with discharge planning / needs. DCP- Discharge Planning Updated by [id number]: Luly Patel on 07/03/19 2:[address] Appended by Luly Patel on 07/03/2019 15:32 CDT: 1530. CM SPOKE WITH ROBERT MARTEL DTRS TO PATIENT ON [address]. FAMILY UNHAPPY WITH HOSPICE PRECEDINGS, AND DID NOT UNDERSTAND WHY PATIENT WAS NOT HOSPICE APPROPRIATE. STATED FAMILY IS UNABLE TO PROVIDE CARE FOR PATIENT IN THE HOME SETTING. MONICA STATES SHE MAY POTENTIALLY HAVE COVID- 19. CM PROVIDED EDUCATION ABOUT THE HOSPICE CRITERIA, AND ALLOWED FAMILY TO VOICE CONCERNS. PROVIDED UPDATE TO POC, AND COMFORT CARE WHILE IN THE HOSPITAL. FAMILY EXPRESSED APPRETIATION FOR NURSING STAFF. FAMILY WISHES TO HAVE A PHYSCIAN SPEAK WITH THEM REGUARDING THE CARE, AND DIAGNOSIS. VAISHALI SPOKE WITH DR MCGRATH WHILE IN HOSPITAL WHO HAS AGREED TO SPEAK WITH NAY AT [phone]. CM WILL FOLLOW ALONG. Cristine PATEL MSN,RN,CM CM SPOKE WITH NURSING ABOUT THE CONDITION OF PATIENT. NURSING STATED THE PATIENT HAS INCREASED PAIN, AND HYPOTENSIVE AND WAS NOT ABLE TO RECIEVE PAIN MEDICATION. ASKED ABOUT THE HOSPICE REFERRAL. CALLED [facility] AND SPOKE WITH THE ONCALL NURSE (CELESTE). UPDATED CONDITION. CELESTE WILL BE BY TO RE-EVALUATE. CALLED NAY AT [phone]. SHE STATED SHE WAS NOT ABLE TO CARE FOR THE PATIENT IN THE HOME SETTING, AND WANTED HER FAMILY MEMBER TO BE COMFORTABLE. STATED IF VICKY WAS NOT ABLE TO DO GIP, TO CALL [facility]. CM WILL CONTINUE TO ASSIST NEEDED. LULY PATEL MSN,RN,CM Appended by Luly Patel on 07/03/2019 11:38 CDT: CM was notified that family has decided upon hospice. CM called and spoke to Nay Asencio [phone]. ABHAY verbally given for GIP [facility]. CM contacted Hospice and faxed records. Family called and stated they would be up here later to meet with Hospice nurse. CM contacted [facility] since patient's family is here waiting. CM received call back that nurse is on her way to evaluate and meet with family. Hospice nurse here and evaluated patient. HOSPICE STATED THAT PATIENT WASN'T GIP APPROPRIATE AT THIS TIME if patient symptoms worsen then they can re-eval. They would be willing to admit to hospice at home if family agrees. Hospice nurse to call family and let them know decision. CM will continue to follow and assist as needed. DCP- Discharge Planning Updated by [email or web address]: Kendra Fajardo on 06/30/19 5:[address] CM notified this am that patient to discharge today. CM contacted Vivian with [facility] regarding patient and faxed updates. Vivian had multiple questions regarding whether patient will be getting cancer treatment. VAISHALI explained that patient is suppose to be evaluated at [facility] but [facility] will not evaluate patient until COVID 19 is over. Vivian wanted to know if britt is going to be left in and IV along with any antibiotics. Wounds and wound care and the patients ability to sit up in w/c for transport. CM discussed with Nursing. Vivian called back and stated that she needs to get in touch with family regarding financials and plan for discharge v/s placement after her 20 days are up. Vivian has been trying to get in touch with daughter Nay Asencio [phone] which is the only contact listed. One of patients daughters was here today and stated that the patient wasn't going any where until she has some kind of cancer treatment. Dr. Sands was notified to contact family. [facility] did send clinicals for Auth . CM will continue to follow and assist as needed with discharge planning / needs. DCP- Discharge Planning Updated by [id number]: Purvi Roldan on 06/28/19 3:[address] Sands called and stated that he spoke with the MD from [place] & he wants a Bx to determine the plan of care. He would order this with IR then he will speak with the Patient and her family. CM will continue to assist with DC planning as needed. If she plans to go to [facility] she will need updated therapy notes to be sent to [facility]. CM to follow and assist DCP- Discharge Planning Updated by [id number]: Tracey Franklin on 06/23/19 9:[address] Received call from patient's daughter Monica Asencio stating her mother will need to go to Rehab and she wants he to go to [facility] in [place]. ABHAY discussed over the phone and signed via telephone consent with Francie Fleming CM witnessing. CM received order for PT/OT consult as this is required for rehab. This patient is a managed medicare policy and will require authorization. Tracey Franklin RN, [facility] DCP- Discharge Planning Updated by [id number]: Purvi Roldan on 06/22/19 6:[address] Attempted to see the patient, but she was very sleepy. She stated that she lives alone in [place] is independent at home. During our conversation she was falling asleep again. I will attempt to see her again at a later time. CM to follow and assist with DC planning Coverage Notice Reviewer: [id number] Haylee Patel Notice Issued Date-Time: 07/03/2019 11:30 Notice Type: Patient Choice Letter Notice Delivered To: Family Member Relationship to Patient: Project Geophysicist Name: NAY Delivery Method: PHONE - Phone Jannette Days: Prior Verbal Notification: Yes Recipient Understood Notice: Yes Recipient Signature: Med Rec Note Co-signed by Attending: Coverage Notice Comment: ABHAY VERBALIZED FOR [facility] Last DP export: 07/05/19 5:07 p Patient Name: CONRAD ASENCIO Page [id number] at 2023 All edits/amendments must be made on the electronic document DICTATION DATE: 07/06/192023 SANITARY ENGINEER: ALBERTA 07/06/192023 RPT#: [id number] DC DATE: STATUS: ADM IN [facility] [address] [place] [address] END OF REPORT
--- NOTE | 2019-07-06 20:31 | MORECARE ---
CASE MANAGEMENT DISCHARGE SUMMARY PATIENT: CONRAD ASENCIO UNIT: [id number] ADM DATE: 06/20/19 AGE: 84 : 35 SEX: F ROOM/BED: D.9641 AUTHOR: HOMERODOC PHYSICIAN: REFERRING PHYSICIAN: GENI SANDS MD DATE OF SERVICE: 07/06/19 Discharge Plan Patient Name: CONRAD ASENCIO Facility: [facility]:[place] : 1935 Planned Disposition: Home Anticipated Discharge Date: Discharge Date: Expected LOS: Initial Reviewer: [email or web address] Initial Review Date: 06/20/2019 Generated: 07/06/19 9:30 pm Comments DCP- Discharge Planning Updated by [email or web address]: Kendra Fajardo on 07/06/19 7:[address] CM contacted Danial with [facility] to see if patient was re-evaluated yesterday. Danial stated that the nurse who evaluated yesterday stated that the patient was wanting physical therapy. CM explained that the patient is nonresponsive and has been for the last two days. CM asked if they would re-eval again today. Hospice nurse did come and re-evaluate this afternoon and the patient has been accepted for [facility] Hospice. Hospice contacted daughter Nay but she is not willing to meet with Hospice today to sign legals. CM will continue to follow and assist as needed with discharge planning / needs. DCP- Discharge Planning Updated by [id number]: Kendra Fajardo on 07/05/19 5:[address] CM spoke with Valders with [facility] to see about having them re-evaluate patient for [facility]. CM gave Danial an update and he stated he would have a nurse to come and evaluate. CM explained that the family got a little upset on Thursday night because they waited for over 2 hours on nurse to arrive and then they didn't accept. CM requested that nurse come to evaluate and then if patient meets criteria then call family to sign legals. CM will continue to follow and assist as needed with discharge planning / needs. DCP- Discharge Planning Updated by [id number]: Luly Patel on 07/03/19 2:[address] Appended by Luly Patel on 07/03/2019 15:32 CDT: 1530. CM SPOKE WITH NAY, AND MONICA DTRS TO PATIENT ON [address] CALL. FAMILY UNHAPPY WITH HOSPICE PRECEDINGS, AND DID NOT UNDERSTAND WHY PATIENT WAS NOT HOSPICE APPROPRIATE. STATED FAMILY IS UNABLE TO PROVIDE CARE FOR PATIENT IN THE HOME SETTING. MONICA STATES SHE MAY POTENTIALLY HAVE COVID- 19. CM PROVIDED EDUCATION ABOUT THE HOSPICE CRITERIA, AND ALLOWED FAMILY TO VOICE CONCERNS. PROVIDED UPDATE TO POC, AND COMFORT CARE WHILE IN THE HOSPITAL. FAMILY EXPRESSED APPRETIATION FOR NURSING STAFF. FAMILY WISHES TO HAVE A PHYSCIAN SPEAK WITH THEM REGUARDING THE CARE, AND DIAGNOSIS. CM SPOKE WITH DR MCGRATH WHILE IN HOSPITAL WHO HAS AGREED TO SPEAK WITH NAY AT [phone]. CM WILL FOLLOW ALONG. Cristine PATEL MSN,RN,CM CM SPOKE WITH NURSING ABOUT THE CONDITION OF PATIENT. NURSING STATED THE PATIENT HAS INCREASED PAIN, AND HYPOTENSIVE AND WAS NOT ABLE TO RECIEVE PAIN MEDICATION. ASKED ABOUT THE HOSPICE REFERRAL. CALLED [facility] AND SPOKE WITH THE ONCALL NURSE (CELESTE). UPDATED CONDITION. CELESTE WILL BE BY TO RE-EVALUATE. CALLED NAY AT [phone]. SHE STATED SHE WAS NOT ABLE TO CARE FOR THE PATIENT IN THE HOME SETTING, AND WANTED HER FAMILY MEMBER TO BE COMFORTABLE. STATED IF VICKY WAS NOT ABLE TO DO GIP, TO CALL [facility]. CM WILL CONTINUE TO ASSIST NEEDED. LULY SIMON,RN, Appended by Luly Patel on 07/03/2019 11:38 CDT: CM was notified that family has decided upon hospice. CM called and spoke to Nay Murray [phone]. ABHAY verbally given for GIP [facility]. CM contacted Hospice and faxed records. Family called and stated they would be up here later to meet with Hospice nurse. CM contacted [facility] since patient's family is here waiting. CM received call back that nurse is on her way to evaluate and meet with family. Hospice nurse here and evaluated patient. HOSPICE STATED THAT PATIENT WASN'T GIP APPROPRIATE AT THIS TIME if patient symptoms worsen then they can re-eval. They would be willing to admit to hospice at home if family agrees. Hospice nurse to call family and let them know decision. CM will continue to follow and assist as needed. DCP- Discharge Planning Updated by [id number]: Kendra Fajardo on 06/30/19 5:[address] CM notified this am that patient to discharge today. CM contacted Vivian with [facility] regarding patient and faxed updates. Vivian had multiple questions regarding whether patient will be getting cancer treatment. CM explained that patient is suppose to be evaluated at [facility] but [facility] will not evaluate patient until COVID 19 is over. Vivian wanted to know if britt is going to be left in and IV along with any antibiotics. Wounds and wound care and the patients ability to sit up in w/c for transport. CM discussed with Nursing. Vivian called back and stated that she needs to get in touch with family regarding financials and plan for discharge v/s placement after her 20 days are up. Vivian has been trying to get in touch with daughter Nay Asencio [phone] which is the only contact listed. One of patients daughters was here today and stated that the patient wasn't going any where until she has some kind of cancer treatment. Dr. Sands was notified to contact family. [facility] did send clinicals for Auth . CM will continue to follow and assist as needed with discharge planning / needs. DCP- Discharge Planning Updated by [id number]: Purvi Roldan on 06/28/19 3:[address] Sands called and stated that he spoke with the MD from [facility] & he wants a Bx to determine the plan of care. He would order this with IR then he will speak with the Patient and her family. CM will continue to assist with DC planning as needed. If she plans to go to [facility] she will need updated therapy notes to be sent to [facility]. CM to follow and assist DCP- Discharge Planning Updated by [id number]: Tracey Franklin on 06/23/19 9:[address] Received call from patient's daughter Monica Asencio stating her mother will need to go to Rehab and she wants he to go to [facility] in [place]. ABHAY discussed over the phone and signed via telephone consent with Francie Fleming CM witnessing. CM received order for PT/OT consult as this is required for rehab. This patient is a managed medicare policy and will require authorization. Tracey Franklin RN, [facility] DCP- Discharge Planning Updated by [email or web address]: Purvi Roldan on 06/22/19 6:[address] Attempted to see the patient, but she was very sleepy. She stated that she lives alone in [place] is independent at home. During our conversation she was falling asleep again. I will attempt to see her again at a later time. CM to follow and assist with DC planning Coverage Notice Reviewer: [email or web address] Haylee Patel Notice Issued Date-Time: 07/03/2019 11:30 Notice Type: Patient Choice Letter Notice Delivered To: Family Member Relationship to Patient: Film Mounter Name: NAY Delivery Method: PHONE - Phone Jannette Days: Prior Verbal Notification: Yes Recipient Understood Notice: Yes Recipient Signature: Med Rec Note Co-signed by Attending: Coverage Notice Comment: ABHAY VERBALIZED FOR [facility] Last DP export: 07/06/19 7:24 pm Patient Name: CONRAD ASENCIO Page [id number] at 2031 All edits/amendments must be made on the electronic document DICTATION DATE: 07/06/192029 CUSTODIAN ATHLETIC EQUIPMENT: ALBERTA 07/06/192029 RPT#: [id number] DC DATE: STATUS: ADM IN [facility] [address] [place] [address] END OF REPORT
[2019-07-07 08:00] VITALS: BP 87/43
[2019-07-07 11:44] VITALS: BP 65/32
--- NOTE | 2019-07-07 19:07 | MORECARE ---
CASE MANAGEMENT DISCHARGE SUMMARY PATIENT: CONRAD ASENCIO UNIT: [id number] ADM DATE: 06/20/19 AGE: 84 : 35 SEX: F ROOM/BED: D.3306 AUTHOR: HOMERO,DOC PHYSICIAN: REFERRING PHYSICIAN: GENI SANDS MD DATE OF SERVICE: 07/07/19 Discharge Plan Patient Name: CONRAD ASENCIO Facility: [facility]:[place] : 1935 Planned Disposition: Home Anticipated Discharge Date: Discharge Date: 07/07/2019 Expected LOS: Initial Reviewer: [id number] Initial Review Date: 06/20/2019 Generated: 07/07/19 8:06 pm Comments DCP- Discharge Planning Updated by [id number]: Kendra Fajardo on 07/06/19 7:[address] CM contacted Danial with [facility] to see if patient was re-evaluated yesterday. Danial stated that the nurse who evaluated yesterday stated that the patient was wanting physical therapy. CM explained that the patient is nonresponsive and has been for the last two days. CM asked if they would re-eval again today. Hospice nurse did come and re-evaluate this afternoon and the patient has been accepted for [facility]. Hospice contacted daughter Nay but she is not willing to meet with Hospice today to sign legals. CM will continue to follow and assist as needed with discharge planning / needs. DCP- Discharge Planning Updated by [email or web address]: Kendra Fajardo on 07/05/19 5:[address] CM spoke with Danial with [facility] to see about having them re-evaluate patient for [facility]. CM gave Danial an update and he stated he would have a nurse to come and evaluate. CM explained that the family got a little upset on Thursday night because they waited for over 2 hours on nurse to arrive and then they didn't accept. CM requested that nurse come to evaluate and then if patient meets criteria then call family to sign legals. CM will continue to follow and assist as needed with discharge planning / needs. DCP- Discharge Planning Updated by [id number]: Luly Patel on 07/03/19 2:[address] Appended by Luly Patel on 07/03/2019 15:32 CDT: 1530. CM SPOKE WITH NAY, AND MONICA DTRS TO PATIENT ON [address] CALL. FAMILY UNHAPPY WITH HOSPICE PRECEDINGS, AND DID NOT UNDERSTAND WHY PATIENT WAS NOT HOSPICE APPROPRIATE. STATED FAMILY IS UNABLE TO PROVIDE CARE FOR PATIENT IN THE HOME SETTING. MONICA STATES SHE MAY POTENTIALLY HAVE COVID- 19. CM PROVIDED EDUCATION ABOUT THE HOSPICE CRITERIA, AND ALLOWED FAMILY TO VOICE CONCERNS. PROVIDED UPDATE TO POC, AND COMFORT CARE WHILE IN THE HOSPITAL. FAMILY EXPRESSED APPRETIATION FOR NURSING STAFF. FAMILY WISHES TO HAVE A PHYSCIAN SPEAK WITH THEM REGUARDING THE CARE, AND DIAGNOSIS. CM SPOKE WITH DR MCGRATH WHILE IN HOSPITAL WHO HAS AGREED TO SPEAK WITH NAY AT [phone]. CM WILL FOLLOW ALONG. Cristine PATEL MSN,RN,CM CM SPOKE WITH NURSING ABOUT THE CONDITION OF PATIENT. NURSING STATED THE PATIENT HAS INCREASED PAIN, AND HYPOTENSIVE AND WAS NOT ABLE TO RECIEVE PAIN MEDICATION. ASKED ABOUT THE HOSPICE REFERRAL. CALLED [facility] AND SPOKE WITH THE ONCALL NURSE (CELESTE). UPDATED CONDITION. CELESTE WILL BE BY TO RE-EVALUATE. CALLED NAY AT [phone]. SHE STATED SHE WAS NOT ABLE TO CARE FOR THE PATIENT IN THE HOME SETTING, AND WANTED HER FAMILY MEMBER TO BE COMFORTABLE. STATED IF VICKY WAS NOT ABLE TO DO GIP, TO CALL [facility]. CM WILL CONTINUE TO ASSIST NEEDED. LULY SIMON,RN,CM Appended by Luly Patel on 07/03/2019 11:38 CDT: CM was notified that family has decided upon hospice. CM called and spoke to Nay Murray [phone]. ABHAY verbally given for GIP [facility]. CM contacted Hospice and faxed records. Family called and stated they would be up here later to meet with Hospice nurse. CM contacted [facility] since patient's family is here waiting. CM received call back that nurse is on her way to evaluate and meet with family. Hospice nurse here and evaluated patient. HOSPICE STATED THAT PATIENT WASN'T GIP APPROPRIATE AT THIS TIME if patient symptoms worsen then they can re-eval. They would be willing to admit to hospice at home if family agrees. Hospice nurse to call family and let them know decision. CM will continue to follow and assist as needed. DCP- Discharge Planning Updated by [id number]: Kendra Fajardo on 06/30/19 5:[address] CM notified this am that patient to discharge today. CM contacted Vivian with [facility] regarding patient and faxed updates. Vivian had multiple questions regarding whether patient will be getting cancer treatment. CM explained that patient is suppose to be evaluated at [facility] but [facility] will not evaluate patient until COVID 19 is over. Vivian wanted to know if britt is going to be left in and IV along with any antibiotics. Wounds and wound care and the patients ability to sit up in w/c for transport. CM discussed with Nursing. Vivian called back and stated that she needs to get in touch with family regarding financials and plan for discharge v/s placement after her 20 days are up. Vivian has been trying to get in touch with daughter Nay Asencio [phone] which is the only contact listed. One of patients daughters was here today and stated that the patient wasn't going any where until she has some kind of cancer treatment. Dr. Sands was notified to contact family. [facility] did send clinicals for Auth . CM will continue to follow and assist as needed with discharge planning / needs. DCP- Discharge Planning Updated by [id number]: Purvi Roldan on 06/28/19 3:[address] Sands called and stated that he spoke with the MD from [place] & he wants a Bx to determine the plan of care. He would order this with IR then he will speak with the Patient and her family. CM will continue to assist with DC planning as needed. If she plans to go to [facility] she will need updated therapy notes to be sent to [facility]. CM to follow and assist DCP- Discharge Planning Updated by [email or web address]: Tracey Franklin on 06/23/19 9:[address] Received call from patient's daughter Monica Asencio stating her mother will need to go to Rehab and she wants he to go to [facility] in [place]. ABHAY discussed over the phone and signed via telephone consent with Francie Fleming CM witnessing. CM received order for PT/OT consult as this is required for rehab. This patient is a managed medicare policy and will require authorization. Tracey Fraknlin RN, [facility] DCP- Discharge Planning Updated by [id number]: Purvi Roldan on 06/22/19 6:[address] Attempted to see the patient, but she was very sleepy. She stated that she lives alone in [place] is independent at home. During our conversation she was falling asleep again. I will attempt to see her again at a later time. CM to follow and assist with DC planning Coverage Notice Reviewer: [id number] Haylee Patel Notice Issued Date-Time: 07/03/2019 11:30 Notice Type: Patient Choice Letter Notice Delivered To: Family Member Relationship to Patient: Hand Cooper Helper Name: NAY Delivery Method: PHONE - Phone Jannette Days: Prior Verbal Notification: Yes Recipient Understood Notice: Yes Recipient Signature: Med Rec Note Co-signed by Attending: Coverage Notice Comment: ABHAY VERBALIZED FOR [facility] Last DP export: 07/06/19 7:31 pm Patient Name: CONRAD ASENCIO Page [id number] at 1907 All edits/amendments must be made on the electronic document DICTATION DATE: 07/07/191905 CRATE TIER: ALBERTA 07/07/191905 RPT#: [id number] DC DATE:07/07/19 STATUS: DIS IN [facility] [address] [place] [address] END OF REPORT
== END 2019-07-07 14:26 | disposition hospice, inpatient (51) | DRG 746 ==
LOC: D.ER 15:34 → D.MS 17:49
PROVIDERS: Family Medicine; Internal Medicine; Internal Medicine Nephrology; Internal Medicine Pulmonary Disease; Thoracic Surgery (Cardiothoracic Vascular Surgery); ADMIT Obstetrics & Gynecology; ATTEND Obstetrics & Gynecology
PROC: 0UBMXZX Excision of Vulva, External Approach, Diagnostic (ICD-10-PCS; principal; 2019-06-21 11:00)
PROC: 0W9930Z Drainage of Right Pleural Cavity with Drainage Device, Percutaneous Approach (ICD-10-PCS; 2019-06-23)
DX: C51.9 Malignant neoplasm of vulva, unspecified (principal); J18.9 Pneumonia, unspecified organism; A41.9 Sepsis, unspecified organism; G93.41 Metabolic encephalopathy; E43 Unspecified severe protein-calorie malnutrition; R53.2 Functional quadriplegia; J90 Pleural effusion, not elsewhere classified; N17.9 Acute kidney failure, unspecified; N39.0 Urinary tract infection, site not specified; E87.0 Hyperosmolality and hypernatremia; E87.2 Acidosis; N18.9 Chronic kidney disease, unspecified; E83.52 Hypercalcemia; D50.9 Iron deficiency anemia, unspecified; E87.6 Hypokalemia

== ENCOUNTER 2019-07-07 15:20 | Inpatient (IN) | payer OTHER ==
[~2019-07-07] VITALS: Ht 160 cm; Wt 63.6 kg
[2019-07-07 12:00] VITALS: BP 65/32
[2019-07-07 15:29] VITALS: BP 70/30; BMI 24.8
--- NOTE | 2019-07-07 19:00 | MORECARE ---
CASE MANAGEMENT DISCHARGE SUMMARY PATIENT: CONRAD ASENCIO UNIT: [id number] ADM DATE: 07/07/19 AGE: 84 : 35 SEX: F ROOM/BED: D.2215 AUTHOR: SHAY VALENTIN PHYSICIAN: REFERRING PHYSICIAN: DARYN MOMIN MD DATE OF SERVICE: 07/07/19 Discharge Plan Patient Name: CONRAD ASENCIO Facility: [facility]:[place] : 1935 Planned Disposition: Anticipated Discharge Date: Discharge Date: Expected LOS: Initial Reviewer: [email or web address] Initial Review Date: 07/07/2019 Generated: 07/07/19 8:00 pm Patient Name: CONRAD ASENCIO Page 72033 at 1900 All edits/amendments must be made on the electronic document DICTATION DATE: 07/07/191899 POWER PLANT OPERATOR: ALBERTA 07/07/191899 RPT#: [id number] DC DATE: STATUS: ADM IN [facility] [address] [place] [address] END OF REPORT
[2019-07-07 20:00] VITALS: BP 64/39
--- NOTE | 2019-07-07 20:00 | NUR ---
PATIENT RESTING IN BED WITH EYES CLOSED. PATIENT IS VERY LETHARGIC, AND UNRESPONSIVE TO TOUCH OR NAME. PATIENT IS ON HOSPICE AND A DNR. PATIENT HAS RIGHT FOREARM IV SALINE LOC. IV IS PATENT WITHOUT REDNESS, SWELLING, OR TENDERNESS. PATIENT HAS A CARVALHO AND IS INCONTINENT OF BOWEL. CALL LIGHT IS IN PLACE. WILL CONTINUE TO MONITOR.
[2019-07-08 04:00] VITALS: BP 116/70
--- NOTE | 2019-07-08 07:25 | NUR ---
PT AGONAL BREATHING, TURNED PT TO RT SIDE, ADMINISTERED PRN PAIN MEDICATION, BED IN LOWEST POSITION, NO FAMILY AT BEDSIDE, CONTINUE WITH COMFORT CARE
[2019-07-08 08:04] VITALS: BP 72/44
--- NOTE | 2019-07-08 08:44 | MORECARE ---
CASE MANAGEMENT DISCHARGE SUMMARY PATIENT: CONRAD ASENCIO UNIT: [id number] ADM DATE: 07/07/19 AGE: 84 : 35 SEX: F ROOM/BED: D.2215 AUTHOR: SHAY VALENTIN PHYSICIAN: REFERRING PHYSICIAN: DARYN MOMIN MD DATE OF SERVICE: 07/08/19 Discharge Plan Patient Name: CONRAD ASENCIO Facility: [facility]:[place] : 1935 Planned Disposition: Anticipated Discharge Date: Discharge Date: Expected LOS: Initial Reviewer: [email or web address] Initial Review Date: 07/07/2019 Generated: 07/08/19 9:43 am Last DP export: 07/07/19 6:00 pm Patient Name: CONRAD ASENCIO Page [id number] at 0844 All edits/amendments must be made on the electronic document DICTATION DATE: 07/08/19842 TYPIST: ALBERTA 07/08/1943 RPT#: [id number] DC DATE: STATUS: ADM IN [facility] [address] [place] [address] END OF REPORT
--- NOTE | 2019-07-08 12:44 | NUR ---
I have reviewed this patient and I concur with the Shift Assessment completed by the Licensed Practical Nurse today this shift.
--- NOTE | 2019-07-08 16:19 | NUR ---
WENT TO TURN PT, PT BREATHS 11 PER MINUTE, TALKED TO PT I WAS TURNING HER, SPOKE TO FAMILY OVER PHONE WELL, WILL CONTINUE WITH PLAN OF CARE AND COMFORT CARE
--- NOTE | 2019-07-08 19:50 | NUR ---
LARGE INCONTINENT BOWEL MOVEMENT. CLEANED PATIENT. PATIENT REMAINED UNRESPONSIVE AND DID NOT RESPOND WHEN TURNING PATIENT. PROVIDED COMFORT. PLACED WITH HOB ELEVATED.
--- NOTE | 2019-07-08 20:20 | NUR ---
PATIENT FAMILY CALLED. ASKED THIS NURSE TO PLACE PHONE TO EAR AND ALLOW FAMILY TO SPEAK TO PATIENT. PROVIDED COMFORT TO PATIENT.
[2019-07-08 22:35] VITALS: BP 66/27
--- NOTE | 2019-07-09 01:28 | NUR ---
CLEANED PATIENT FROM INCONTINENT BOWEL MOVEMENT. RETURNED TO RESTING POSITION
--- NOTE | 2019-07-09 03:00 | NUR ---
I have reviewed this patient and I concur with the Shift Assessment completed by the Licensed Practical Nurse today this shift.
--- NOTE | 2019-07-09 08:00 | NUR ---
ASSESSMENT PER FLOW SHEET. PATIENT IS NON RESPONSIVE WITH SHALLOW RESPIRATIONS. MONITOR
--- NOTE | 2019-07-09 11:20 | NUR ---
TO ROOM AND RESPIRAIONS HAVE STOPPED. CALL TO [facility] WITH HOSPICE
--- NOTE | 2019-07-09 12:00 | NUR ---
PRONOUNCED. FAMILY NOTIFIED.PT WILL GO TO [facility] IN [place]
--- NOTE | 2019-07-09 12:53 | NUR ---
CALL TO [facility]. PATIENT DECLINED
--- NOTE | 2019-07-09 14:20 | NUR ---
HOME HERE TO VOICE INTERCEPT TECHNICIAN BODY.
--- NOTE | 2019-07-10 10:14 | MORECARE ---
CASE MANAGEMENT DISCHARGE SUMMARY PATIENT: CONRAD ASENCIO UNIT: [id number] ADM DATE: 07/07/19 AGE: 84 : 35 SEX: F ROOM/BED: D.2215 AUTHOR: SHAY VALENTIN PHYSICIAN: REFERRING PHYSICIAN: DARYN MOMIN MD DATE OF SERVICE: 07/10/19 Discharge Plan Patient Name: CONRAD ASENCIO [facility] [facility] 1935 Planned Disposition: Anticipated Discharge Date: Discharge Date: 07/09/2019 Expected LOS: Initial Reviewer: [email or web address] Initial Review Date: 07/07/2019 Generated: 07/10/19 11:13 am Last DP export: 07/08/19 7:44 am Patient Name: CONRAD ASENCIO Page [id number] at 1014 All edits/amendments must be made on the electronic document DICTATION DATE: 07/10/19 1013 DIRECTOR PRESALES: DM 07/10/19 1013 RPT#: [id number] DC DATE:07/09/19 STATUS: DIS IN [facility] [address] [place] [address] END OF REPORT
[2019-07-10 15:38] VITALS: Ht 160 cm; Wt 63.6 kg
== END 2019-07-09 14:00 | DRG 951 ==
LOC: D.MS 15:20
PROVIDERS: ADMIT Legal Medicine; ATTEND Legal Medicine
DX: Z51.5 Encounter for palliative care (principal)